=== PATIENT | male | born 1970 | race Caucasian/White ===

== ENCOUNTER 2025-01-14 06:09 | Day surgery (SDC) | payer SELFPAY ==
[2025-01-14] VITALS (8 sets, daily range): BP systolic 93–137; BP diastolic 57–95; PULSE 70–78; RESP 14–16; TEMP 36.3–36.6; O2SAT 96–99; BMI 37.9
--- OUTSIDE RECORDS SUMMARY | 2025-01-14 06:16 | XMS RPT_ITS | CCD ---
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 Name Role Phone Roberto Macdonald Unavailable Unavailable Herrera Enrique Referring Unavailable Herrera Enrique Primary Care Unavailable Porfirio Perez Attending Unavailable Allergies Allergy Classification Reported Allergen(s) Allergy Type Date of Onset Reaction(s) Facility (1 source) gabapentin Drug Allergy 01-10-2025 [facility] Repository (1 source) Latex Drug allergy (disorder) 01-10-2025 [facility] Repository Medications Current Medications Medication Drug Class(es) Dates Sig (Normalized) Sig (Original) aspirin 81 mg chewable tablet (20 sources) Platelet Aggregation Inhibitor, Nonsteroidal Anti-inflammatory Drug aspirin 81 MG Chew Tab take 81 mg by mouth daily.. 0 Active 24 hr buPROPion hydrochloride 300 mg extended release oral tablet (20 sources) Aminoketone Start: 11-30-2017 End: 10-31-2019 take 1 tablet by mouth once daily buPROPion (Wellbutrin XL) 300 MG tablet XL Indications: Mild episode of recurrent major depressive disorder Take 1 tablet by mouth daily. 90 tablet 1 10/31/2019 Active gabapentin 300 mg oral capsule (18 sources) Anti-epileptic Agent Start: 02-21-2020 End: 08-19-2020 take 1 capsule by mouth once daily in the morning gabapentin 100 MG capsule Indications: Neuropathy Take 1 capsule by mouth daily every morning. Take the 300 mg at hs also 90 capsule 1 02/21/2020 08/19/2020 Active Start: 01-30-2020 End: 09-16-2020 take 1 capsule by mouth at bedtime gabapentin 300 MG capsule Indications: Neuropathy Take 1 capsule by mouth at bedtime. 90 capsule 1 03/20/2020 09/16/2020 Active Start: 12-30-2019 End: 03-29-2020 take 1 capsule by mouth three times daily gabapentin 100 MG capsule Indications: Neuropathy Take 1 capsule by mouth 3 times daily. 90 capsule 2 12/30/2019 01/30/2020 Discontinued (Reorder) lisinopril 40 mg oral tablet (20 sources) Angiotensin Converting Enzyme Inhibitor Start: 02-21-2020 take 0.5 tablet by mouth once daily lisinopril 40 MG tablet Indications: Essential hypertension Take 0.5 tablets by mouth daily. 90 tablet 1 02/21/2020 Active Start: 06-01-2018 End: 02-21-2020 take 1 tablet by mouth once daily lisinopril 40 MG Tab tablet Indications: Essential hypertension Take 1 tablet by mouth daily. 90 tablet 1 11/16/2018 Active Start: 11-30-2017 End: 06-01-2018 take 1 tablet by mouth once daily lisinopril 20 MG Tab Indications: Essential hypertension Take 1 tablet by mouth daily. 90 tablet 1 06/01/2018 06/01/2018 Discontinued 24 hr venlafaxine 225 mg extended release oral tablet (20 sources) Serotonin and Norepinephrine Reuptake Inhibitor Start: 11-30-2017 End: 10-31-2019 take 1 tablet by mouth once daily Venlafaxine HCl 225 MG tablet ER Indications: Mild episode of recurrent major depressive disorder Take 1 tablet by mouth daily. 90 tablet 1 10/31/2019 Active Completed/Discontinued Medications Medication Drug Class(es) Dates Sig (Normalized) Sig (Original) clomiPHENE citrate 50 mg oral tablet (4 sources) Estrogen Agonist/Antagonist Start: 8 End: 9 take 0.5 tablet by mouth once daily clomiPHENE 50 MG Tab Indications: Hypotestosteronemia Take 0.5 tablets by mouth daily. 15 tablet 0 12/27/2017 11/16/2018 Discontinued (Patient Preference) clomiPRAMINE hydrochloride 25 mg oral capsule (2 sources) Tricyclic Antidepressant Start: 0 End: 0 take 1 capsule by mouth at bedtime clomiPRAMINE 25 MG capsule Indications: Moderate episode of recurrent major depressive disorder Take 1 capsule by mouth at bedtime. 30 capsule 2 12/30/2019 01/30/2020 Discontinued (Therapy completed) diclofenac sodium 75 mg delayed release oral tablet (8 sources) Nonsteroidal Anti-inflammatory Drug Start: 9 End: 0 take 1 tablet by mouth twice daily diclofenac EC [address] tablet Indications: Thoracic myofascial strain, initial encounter Take 1 tablet by mouth 2 times daily. 60 tablet 1 12/24/2018 10/31/2019 Discontinued (Therapy completed) 60 actuat formoterol fumarate 0.005 mg/actuat / mometasone furoate 0.2 mg/actuat metered dose inhaler (4 sources) Corticosteroid, beta2-Adrenergic Agonist Start: 7 End: 9 take 2 puff(s) by inhalation twice daily mometasone Furo-Formoterol Fum (DULERA) 200-5 MCG/puff Aerosol inhaler Indications: Chronic bronchitis, unspecified chronic bronchitis type Inhale 2 puffs 2 times daily. 1 Inhaler 0 05/22/2017 11/16/2018 Discontinued (Therapy completed) 10 ml lidocaine hydrochloride 10 mg/ml injection (2 sources) Antiarrhythmic, Amide Local Anesthetic Start: 0 End: 0 lidocaine (XYLOCAINE) 10 mg/mL injection 3 mL methocarbamol 500 mg oral tablet (8 sources) Muscle Relaxant Start: 9 End: 0 take 2 tablets by mouth three times daily as needed for muscle spasms methocarbamol 500 MG Tab Indications: Thoracic myofascial strain, initial encounter Take 2 tablets by mouth 3 times daily as needed for Other (muscle spasm). 50 tablet 1 12/24/2018 10/31/2019 Discontinued (Therapy completed) phentermine hydrochloride 37.5 mg oral tablet (4 sources) Sympathomimetic Amine Anorectic Start: 8 End: 9 take 1 tablet by mouth once daily before breakfast phentermine 37.5 MG Tab Indications: Morbid obesity Take 1 tablet by mouth every morning before breakfast. 30 tablet 0 06/01/2018 12/24/2018 Discontinued (Therapy completed) pregabalin 75 mg oral capsule (2 sources) Start: 0 End: 0 take 1 capsule by mouth at bedtime pregabalin 75 MG capsule Indications: Burning sensation of feet Take 1 capsule by mouth at bedtime. 30 capsule 0 10/31/2019 12/30/2019 Discontinued (Formulary change) 24 hr propranolol hydrochloride 60 mg extended release oral capsule (5 sources) beta-Adrenergic Riaz Start: 0 End: 0 take 1 capsule by mouth once daily propranolol (Inderal LA) 60 MG Cap SR 24HR Indications: Anxiety disorder, unspecified type Take 1 capsule by mouth daily. 30 capsule 0 02/21/2020 03/12/2020 Discontinued (Therapy completed) 1 ml triamcinolone acetonide 40 mg/ml prefilled syringe (2 sources) Corticosteroid Start: 0 End: 0 triamcinolone (KENALOG-40) injection 1 mL zolpidem tartrate 10 mg oral tablet (4 sources) gamma-Aminobutyric Acid-ergic Agonist Start: 8 End: 9 take 1 tablet by mouth at bedtime zolpidem 10 MG Tab tablet Indications: Insomnia, unspecified type Take 1 tablet by mouth at bedtime. 30 tablet 0 06/01/2018 12/24/2018 Discontinued (Therapy completed) Problems Active Problems Problem Classification Problem Date Documented Da te Episodic/Chronic Anxiety disorders (2 sources) Anxiety disorder; Translations: [Anxiety disorder, unspecified type] Chronic Chronic obstructive pulmonary disease and bronchiectasis (20 sources) Chronic bronchitis; Translations: [Chronic bronchitis] Onset: 09-26-2016 01-05-2017 Chronic Conditions associated with dizziness or vertigo (11 sources) Postural dizziness; Translations: [Dizziness and giddiness] Onset: 01-31-2020 01-31-2020 Episodic Diabetes mellitus without complication (1 source) Hyperglycemia; Translations: [Elevated fasting glucose] Episodic Disorders of lipid metabolism (20 sources) Hypertriglyceridemi a; Translations: [Hypertriglyceridem ia] Onset: 04-04-2017 04-04-2017 Chronic Essential hypertension (20 sources) Essential hypertension; Translations: [Benign hypertension] Onset: 09-26-2016 Resolved: 02-23-2020 09-26-2016 Chronic Mood disorders (20 sources) Major depressive disorder; Translations: [Recurrent major depressive episodes, mild ] Onset: 01-05-2017 01-05-2017 Chronic Nutritional deficiencies (1 source) Burning feet; Translations: [Burning sensation of feet] Episodic Other nervous system disorders (1 source) Idiopathic peripheral neuropathy; Translations: [Idiopathic peripheral neuropathy] Chronic Other nervous system disorders (12 sources) Neuropathy; Translations: [Neuropathy] Onset: 02-23-2020 02-23-2020 Chronic Other nervous system disorders (2 sources) Spinal cord disease; Translations: [Myelopathy] Chronic Other nutritional; endocrine; and metabolic disorders (20 sources) Morbid obesity; Translations: [Morbid obesity due to excess calories] Onset: 01-05-2017 01-05-2017 Chronic Other upper respiratory disease (20 sources) Seasonal allergic rhinitis; Translations: [Seasonal allergic rhinitis] Onset: 09-26-2016 09-26-2016 Chronic Residual codes; unclassified (4 sources) Insomnia due to medical condition; Translations: [Insomnia due to medical condition] Onset: 01-05-2017 01-05-2017 Chronic Residual codes; unclassified (1 source) Insomnia Episodic Residual codes; unclassified (18 sources) Insomnia co-occurrent and due to medical condition; Translations: [Insomnia due to medical condition] Onset: 01-05-2017 01-05-2017 Spondylosis; intervertebral disc disorders; other back problems (20 sources) Chronic low back pain; Translations: [Low back pain] Onset: 09-26-2016 09-26-2016 Episodic Unclassified (1 source) Patient encounter status; Translations: [Routine lab draw] Unclassified (1 source) Myalgia, other site; Translations: [Myofascial pain syndrome of thoracic spine] Unclassified (1 source) Strain of muscle at thorax level; Translations: [Thoracic myofascial strain, initial encounter] Past or Other Problems Problem Classification Problem Date Documented Date Episodic/Chronic Genitourinary symptoms and ill-defined conditions (20 sources) Polyuria; Translations: [Polyuria] Onset: 7 Resolved: 0 01-05-2017 Episodic Malaise and fatigue (20 sources) Fatigue; Translations: [Chronic fatigue] Onset: 7 01-05-2017 Episodic Other nutritional; endocrine; and metabolic disorders (20 sources) Excessive thirst; Translations: [Polydipsia] Onset: 7 Resolved: 8 11-30-2017 Episodic Other upper respiratory infections (20 sources) Acute upper respiratory infection; Translations: [Acute upper respiratory infection] Onset: 7 Resolved: 7 01-05-2017 Episodic Sprains and strains (18 sources) Low back strain; Translations: [Lumbar strain, initial encounter] Onset: 9 Resolved: 0 12-24-2018 Episodic Unclassified (1 source) Hypotestosteronemia Results Test Name Value Interpretation Reference Range Facility QUANTIFERON TB GOLD PLUS 1 T UBEon 06-28-2020 QUANTIFERNON INCUBATION Incubation performed. [facility] Comment on above: Performed By: #### L MMR #### Testing performed at [address] [address] #### LQFIT, ZQFIT #### Testing performed at [facility] QUANTIFERON-TB GOLD PLUS Negative [facility] Comment on above: Result Comment: Refe rence range: Negative PERFORMED AT [facility] Performed By: #### L MMR #### Testing performed at [address] [address] #### LQFIT, ZQFIT #### Testing performed at [facility] RFLX QUANTIFERON-TB GOLD PLU Son 06-28-2020 QUANTIFERON CRITERIA Comment [facility] Comment on above: Result Comment: (NOT E) The QuantiFERON-TB Gold Plus result is determined by subtracting the Nil value from either TB antigen (Ag) tube. The mitogen tube serves as a control for the test. Performed By: #### L MMR #### Testing performed at [address] [address] #### LQFIT, ZQFIT #### Testing performed at [facility] QUANTIFERON MITOGEN VALUE >10.00 [facility] Comment on above: Result Comment: Unit : IU/mL PERFORMED AT [facility] Performed By: #### L MMR #### Testing performed at [address] [address] #### LQFIT, ZQFIT #### Testing performed at [facility] QUANTIFERON NIL VALUE 0.05 [facility] Comment on above: Result Comment: Unit : IU/mL Performed By: #### L MMR #### Testing performed at [address] [address] #### LQFIT, ZQFIT #### Testing performed at [facility] QUANTIFERON TB1 AG VALUE 0.11 [facility] Comment on above: Result Comment: Unit : IU/mL Performed By: #### L MMR #### Testing performed at [address] [address] #### LQFIT, ZQFIT #### Testing performed at [facility] QUANTIFERON TB2 AG VALUE 0.10 [facility] Comment on above: Result Comment: Unit : IU/mL Performed By: #### L MMR #### [place] [address] #### LQFIT, ZQFIT #### Testing performed at [facility] MEASLES,MUMP,RUBELLAon 06-27 MUMPS ABS, IGG <9.0 [facility] Comment on above: Result Comment: Refe rence range: Immune >10.9 Unit: AU/mL (NOTE) Negative <9.0 Equivocal 9.0 - 10.9 Positive >10.9 A positive result generally indicates past exposure to Mumps virus or previous vaccination. PERFORMED AT [facility] Performed By: #### L MMR #### Testing performed at [address] [address] #### LQFIT, ZQFIT #### Testing performed at [facility] RUBEOLA AB, IGG 49.7 [facility] Comment on above: Result Comment: Refe rence range: Immune >16.4 Unit: AU/mL (NOTE) Negative <13.5 Equivocal 13.5 - 16.4 Positive >16.4 Presence of antibodies to Rubeola is presumptive evidence of immunity except when acute infection is suspected. Performed By: #### L MMR #### Testing performed at [address] [address] #### LQFIT, ZQFIT #### Testing performed at [facility] RUBELLA AB, IGG >33.00 [facility] Comment on above: Result Comment: Refe rence range: Immune >0.99 Unit: index (NOTE) Non-immune <0.90 Equivocal 0.90 - 0.99 Immune >0.99 Performed By: #### L MMR #### Testing performed at [facility] [address] [place] [address] [place] [address] #### LQFIT, ZQFIT #### Testing performed at [facility] HEP B SURFACE [facility] HEP B SURFACE AB Negative Abnormal POSITIVE [facility] Comment on above: Result Comment: Clinical Interpretation of Immune Status Negative: patient is considered to be not immune to infection with HBV Intermediate: unable to determine if anti-HBs is present at levels consistent with immunity Positive: anti-HBs detected, patient is considered to be immune to infection with HBV HEP C [facility] 06-26-2020 HEP C AB Negative Normal NEGATIVE [facility] MRI SPINE CERVICAL WITHOUT C [facility] 04-02-2020 MRI SPINE CERVICAL WITHOUT CONTRAST MRI CERVICAL SPINE WITHOUT CONTRAST, 04/02/2020 12:16 PM EDT INDICATION: Myelopathy. COMPARISON: None. TECHNIQUE: Multiplanar, multisequence surface-coil MR imaging of the cervical spine was performed without contrast. LEVELS IMAGED: Foramen magnum to upper thoracic region. FINDINGS: ALIGNMENT: There is straightening of the normal cervical lordosis. VERTEBRAE: No marrow signal abnormalities to suggest neoplasm. SPINAL CORD: Normal signal and contour. CERVICOCRANIAL JUNCTION: No significant focal abnormality. C2/C3: No significant focal abnormality. C3/C4: There is mild disc desiccation and loss of disc space height. There is a left paracentral protrusion superimposed on a posterior disc bulge. There is mild to moderate bilateral facet arthropathy. Disc material contacts the ventral aspect of the cord at this level with no associated cord signal abnormality. There is mild canal and left greater the right foraminal stenosis. C4/C5: There is mild to moderate disc desiccation and loss of disc space height. There is posterior disc bulging and mild to moderate bilateral facet arthropathy. There is bilateral uncinate process spurring, slightly worse in the right than the left. Minimal canal narrowing. There is mild to moderate right greater than left foraminal narrowing. C5/C6: There is mild to moderate disc desiccation and loss of disc space height. There is a central protrusion which results in mild canal narrowing. There is mild to moderate bilateral facet arthropathy. No significant canal narrowing. C6/C7: Mild disc desiccation. Mild to moderate bilateral facet arthropathy. Tiny left paracentral protrusion. No significant canal or foraminal narrowing. C7/T1: No significant canal or foraminal narrowing. UPPER THORACIC SPINE: No significant focal abnormality. Evaluation of the incidentally imaged paraspinal soft tissues and soft tissue structures in the neck demonstrate no additional clearly acute or diagnostic abnormality otherwise. IMPRESSION: 1. There appears to be mild canal and mild to moderate foraminal narrowing in the cervical spine secondary to discogenic disease and degenerative facet arthropathy, most conspicuous at C3/C4-C4/C5. 2. No acute cervical spine fracture or posttraumatic alignment abnormality is identified. 3. No cord signal abnormality to explain myelopathic symptoms. Normal [facility] IMPRESSION: 1. There appears to be mild canal and mild to moderate foraminal narrowing in the cervical spine secondary to discogenic disease and degenerative facet arthropathy, most conspicuous at C3/C4-C4/C5. 2. No acute cervical spine fracture or posttraumatic alignment abnormality is identified. 3. No cord signal abnormality to explain myelopathic symptoms. [facility] MRI CERVICAL SPINE WITHOUT CONTRAST, 04/02/2020 12:16 PM EDT INDICATION: Myelopathy. COMPARISON: None. TECHNIQUE: Multiplanar, multisequence surface-coil MR imaging of the cervical spine was performed without contrast. LEVELS IMAGED: Foramen magnum to upper thoracic region. FINDINGS: ALIGNMENT: There is straightening of the normal cervical lordosis. VERTEBRAE: No marrow signal abnormalities to suggest neoplasm. SPINAL CORD: Normal signal and contour. CERVICOCRANIAL JUNCTION: No significant focal abnormality. C2/C3: No significant focal abnormality. C3/C4: There is mild disc desiccation and loss of disc space height. There is a left paracentral protrusion superimposed on a posterior disc bulge. There is mild to moderate bilateral facet arthropathy. Disc material contacts the ventral aspect of the cord at this level with no associated cord signal abnormality. There is mild canal and left greater the right foraminal stenosis. C4/C5: There is mild to moderate disc desiccation and loss of disc space height. There is posterior disc bulging and mild to moderate bilateral facet arthropathy. There is bilateral uncinate process spurring, slightly worse in the right than the left. Minimal canal narrowing. There is mild to moderate right greater than left foraminal narrowing. C5/C6: There is mild to moderate disc desiccation and loss of disc space height. There is a central protrusion which results in mild canal narrowing. There is mild to moderate bilateral facet arthropathy. No significant canal narrowing. C6/C7: Mild disc desiccation. Mild to moderate bilateral facet arthropathy. Tiny left paracentral protrusion. No significant canal or foraminal narrowing. C7/T1: No significant canal or foraminal narrowing. UPPER THORACIC SPINE: No significant focal abnormality. Evaluation of the incidentally imaged paraspinal soft tissues and soft tissue structures in the neck demonstrate no additional clearly acute or diagnostic abnormality otherwise. Stripe User, Interfaces - 04/02/2020 3:01 PM EDT MRI CERVICAL SPINE WITHOUT CONTRAST, 04/02/2020 12:16 PM EDT INDICATION: Myelopathy. COMPARISON: None. TECHNIQUE: Multiplanar, multisequence surface-coil MR imaging of the cervical spine was performed without contrast. LEVELS IMAGED: Foramen magnum to upper thoracic region. FINDINGS: ALIGNMENT: There is straightening of the normal cervical lordosis. VERTEBRAE: No marrow signal abnormalities to suggest neoplasm. SPINAL CORD: Normal signal and contour. CERVICOCRANIAL JUNCTION: No significant focal abnormality. C2/C3: No significant focal abnormality. C3/C4: There is mild disc desiccation and loss of disc space height. There is a left paracentral protrusion superimposed on a posterior disc bulge. There is mild to moderate bilateral facet arthropathy. Disc material contacts the ventral aspect of the cord at this level with no associated cord signal abnormality. There is mild canal and left greater the right foraminal stenosis. C4/C5: There is mild to moderate disc desiccation and loss of disc space height. There is posterior disc bulging and mild to moderate bilateral facet arthropathy. There is bilateral uncinate process spurring, slightly worse in the right than the left. Minimal canal narrowing. There is mild to moderate right greater than left foraminal narrowing. C5/C6: There is mild to moderate disc desiccation and loss of disc space height. There is a central protrusion which results in mild canal narrowing. There is mild to moderate bilateral facet arthropathy. No significant canal narrowing. C6/C7: Mild disc desiccation. Mild to moderate bilateral facet arthropathy. Tiny left paracentral protrusion. No significant canal or foraminal narrowing. C7/T1: No significant canal or foraminal narrowing. UPPER THORACIC SPINE: No significant focal abnormality. Evaluation of the incidentally imaged paraspinal soft tissues and soft tissue structures in the neck demonstrate no additional clearly acute or diagnostic abnormality otherwise. IMPRESSION IMPRESSION: 1. There appears to be mild canal and mild to moderate foraminal narrowing in the cervical spine secondary to discogenic disease and degenerative facet arthropathy, most conspicuous at C3/C4-C4/C5. 2. No acute cervical spine fracture or posttraumatic alignment abnormality is identified. 3. No cord signal abnormality to explain myelopathic symptoms. [facility] LARGE JOINT/BURSA INJECTION AND/OR ASPIRATION: L hip jointon 03-06-2020 Elvin Randle, [facility] 03/06/2020 4:20 PM LARGE JOINT/BURSA INJECTION AND/OR ASPIRATION: L hip joint Date/Time: 03/06/2020 11:15 AM Supporting Documentation Indications: pain Procedure Details: Location: hip - L hip joint Local Anesthetic: lidocaine 1% Guidance: ultrasound Needle size: 22 G Medication Verification: I have personally verified and performed the final check of the medication(s) used in this procedure prior to administration. The following items were included during the verification process for medication(s) administered: drug name, strength, volume, expiration, physical integrity and appearance of the medication(s). Medications administered: 3 mL lidocaine 10 mg/mL; 1 mL triamcinolone 40 MG/ML Patient tolerance: patient tolerated the procedure well with no immediate complications Consent: Consent was obtained prior to the procedure after discussion of the risks, benefits and alternatives, and expected outcomes were discussed with the patient. The possibilities of reaction to medication, bleeding, infection, the need for additional procedures, failure to diagnosis a condition, and creating a complication requiring operation were discussed with the patient. The patient concurred with the proposed plan, giving consent. Preparation: Patient was prepped in the usual sterile fashion. The patient was prepped with chlorhexidine. [facility] MRI SPINE LUMBAR WITHOUT CON TRASTon 02-28-2020 MRI SPINE LUMBAR WITHOUT CONTRAST EXAM: MRI SPINE LUMBAR WITHOUT CONTRAST HISTORY: Persistent back pain. COMPARISON: 02/27/2020. TECHNIQUE: Multiplanar, multisequence imaging through the lumbar spine without IV contrast. FINDINGS: Vertebral height, marrow signal, and alignment appears preserved. Disc desiccation identified at L5/S1. No evidence of compression fracture or sacral insufficiency fracture. The conus medullaris is not studied in detail but appears to terminate normally at L1 position. Retroperitoneal structures appear unremarkable. L5/S1: 4 mm right synovial cyst. No evidence of central canal stenosis or significant neural foraminal narrowing. L4/L5: Ligamentum flavum hypertrophy as well as facet arthropathy is noted. There is no evidence of central canal stenosis. Very minimal bilateral neural foraminal narrowing. L3/L4: Ligamentum flavum hypertrophy and facet arthropathy without evidence of central canal stenosis or significant neural foraminal narrowing. No axial images proceed through the more cephalad levels. There is a small disc bulge at L2/L3 without central canal stenosis. Very minimal bilateral neural foraminal narrowing. More superior levels do not demonstrate any gross abnormalities. IMPRESSION: 1. No evidence of central canal stenosis. 2. Mild multilevel neural foraminal narrowing. 3. Small 3 mm synovial cyst emanating from the right L5/S1 facet joint. Normal [facility] IMPRESSION: 1. No evidence of central canal stenosis. 2. Mild multilevel neural foraminal narrowing. 3. Small 3 mm synovial cyst emanating from the right L5/S1 facet joint. [facility] EXAM: MRI SPINE LUMBAR WITHOUT CONTRAST HISTORY: Persistent back pain. COMPARISON: 02/27/2020. TECHNIQUE: Multiplanar, multisequence imaging through the lumbar spine without IV contrast. FINDINGS: Vertebral height, marrow signal, and alignment appears preserved. Disc desiccation identified at L5/S1. No evidence of compression fracture or sacral insufficiency fracture. The conus medullaris is not studied in detail but appears to terminate normally at L1 position. Retroperitoneal structures appear unremarkable. L5/S1: 4 mm right synovial cyst. No evidence of central canal stenosis or significant neural foraminal narrowing. L4/L5: Ligamentum flavum hypertrophy as well as facet arthropathy is noted. There is no evidence of central canal stenosis. Very minimal bilateral neural foraminal narrowing. L3/L4: Ligamentum flavum hypertrophy and facet arthropathy without evidence of central canal stenosis or significant neural foraminal narrowing. No axial images proceed through the more cephalad levels. There is a small disc bulge at L2/L3 without central canal stenosis. Very minimal bilateral neural foraminal narrowing. More superior levels do not demonstrate any gross abnormalities. [facility] User, Interfaces - 02/28/2020 3:20 PM EDT EXAM: MRI SPINE LUMBAR WITHOUT CONTRAST HISTORY: Persistent back pain. COMPARISON: 02/27/2020. TECHNIQUE: Multiplanar, multisequence imaging through the lumbar spine without IV contrast. FINDINGS: Vertebral height, marrow signal, and alignment appears preserved. Disc desiccation identified at L5/S1. No evidence of compression fracture or sacral insufficiency fracture. The conus medullaris is not studied in detail but appears to terminate normally at L1 position. Retroperitoneal structures appear unremarkable. L5/S1: 4 mm right synovial cyst. No evidence of central canal stenosis or significant neural foraminal narrowing. L4/L5: Ligamentum flavum hypertrophy as well as facet arthropathy is noted. There is no evidence of central canal stenosis. Very minimal bilateral neural foraminal narrowing. L3/L4: Ligamentum flavum hypertrophy and facet arthropathy without evidence of central canal stenosis or significant neural foraminal narrowing. No axial images proceed through the more cephalad levels. There is a small disc bulge at L2/L3 without central canal stenosis. Very minimal bilateral neural foraminal narrowing. More superior levels do not demonstrate any gross abnormalities. IMPRESSION IMPRESSION: 1. No evidence of central canal stenosis. 2. Mild multilevel neural foraminal narrowing. 3. Small 3 mm synovial cyst emanating from the right L5/S1 facet joint. [facility] XR SPINE THORACIC 2 VIEWSon 02-27-2020 XR SPINE THORACIC 2 VIEWS EXAM: T-spine HISTORY: Pain. Comparison studies: None TECHNIQUE: 3 views of the thoracic spine were obtained. FINDINGS: There is no evidence of acute fracture or subluxation. No suspicious bone lesions are seen. Moderate degenerative changes are seen. The rest of the visualized structures are unremarkable. IMPRESSION: Unremarkable exam. If clinical concern remains, consider further imaging with MRI. Normal [facility] IMPRESSION: Unremarkable exam. If clinical concern remains, consider further imaging with MRI. [facility] EXAM: T-spine HISTORY: Pain. Comparison studies: None TECHNIQUE: 3 views of the thoracic spine were obtained. FINDINGS: There is no evidence of acute fracture or subluxation. No suspicious bone lesions are seen. Moderate degenerative changes are seen. The rest of the visualized structures are unremarkable. [facility] User, Interfaces - 02/27/2020 8:24 PM EDT EXAM: T-spine HISTORY: Pain. Comparison studies: None TECHNIQUE: 3 views of the thoracic spine were obtained. FINDINGS: There is no evidence of acute fracture or subluxation. No suspicious bone lesions are seen. Moderate degenerative changes are seen. The rest of the visualized structures are unremarkable. IMPRESSION IMPRESSION: Unremarkable exam. If clinical concern remains, consider further imaging with MRI. [facility] ECHOCARDIOGRAMon 02-14-2020 APPROVED REPORT Other Information Study Quality: Good Conclusion Left Ventricle : The left ventricle is normal size. Left ventricular systolic function is normal. The left ventricular ejection fraction is within the normal range. Moderate diastolic dysfunction is present (pseudonormal filling). Left Ventricle The left ventricle is normal size. Left ventricular systolic function is normal. The left ventricular ejection fraction is within the normal range. There is normal left ventricular wall thickness. There is normal LV segmental wall motion. Moderate diastolic dysfunction is present (pseudonormal filling). LVEF is 60-65%. Right Ventricle The right ventricle is normal size. The right ventricular systolic function is normal. Atria The left atrium size is normal. The right atrium size is normal. Aortic Valve The aortic valve is normal in structure. There is no aortic valvular stenosis. No aortic regurgitation is present. Mitral Valve The mitral valve is normal in structure. There is no mitral valve regurgitation noted. Tricuspid Valve The tricuspid valve is normal in structure. There is no tricuspid valve regurgitation noted. Pulmonic Valve The pulmonary valve is normal in structure. There is no pulmonic valvular regurgitation. Great Vessels The aortic root is normal in size. Pericardium There is no pericardial effusion. EXAM: Comprehensive 2D, Doppler, and color-flow Echocardiogram 2D Dimensions IVSd 0.9 cm M: 0.6-1.0 LVEF (Billings's) 60.45 % M: 52 - 72 PWd 1.1 cm M: 0.6 - 1.0 EF AP4-a2DQ 57.50 % LVDd 5.0 cm M: 4.2 - 5.8 EF AP2-a2DQ 60.91 % LVDs 3.32 cm M: 2.5 - 4.0 EF BP-a2DQ 60.45 % Aortic Root 3.69 cm M: 3.1 - 3.7 LVSV 45 mL Aortic Root Index 1.5 cm/m2 LV Volume 112.53 mL M: 62 - 150 Ascending Aorta 3.42 cm M: 2.6 - 3.4 LV Volume Index 45.37 mL/m2 M: 34 - 74 Ascending Aorta Index: 1.4 cm/m2 LA Volume 42.9 mL Left Atrium 3.02 cm M: 3.0 - 4.0 LA Volume Index 17.29 mL/m2 (M/F) 16-34 LVOT 2.41 cm (M/F) 1.5-2.5 RV Major 2.00 cm TAPSE 2.0 <1.7 cm RV Minor 8.95 cm IVC 1.0 cm RVID Base (AP4) 2.85 cm (M/F) 2.5-4.1 Right Atrium 5.5 cm (M/F) 2.9-4.5 LV Diastology E/A Ratio 1.3 Septal E' 0.08 (<.07 m/s) LAT E' 0.12 (<.10 m/s) Aortic Valve LVOT Max 0.99 (0.7-1.1 m/s) LVOT VTI 18.26 cm AV DI 0.99 (>0.25) AoV Peak Aly. 0.86 (0.5-1.3 m/s) AV Vmean 0.67 m/s AO Peak GR. 2.95 mmHg AO Mean GR. 1.90 (<5 mmHg) AO VTI 18.5 (18-25 cm) PHILOMENA (VTI) 4.49 (2.5-4.5 cm2) Mitral Valve MV E Max Aly. 0.8 (0.4-1.3 m/s) MV A Velocity 0.63 (0.4-1.3 m/s) E/A Ratio 1.27 MV PHT 41.41 ms MVA PHT 5.31 cm2 MV Dec [place] 401.48 cm/s2 MV Decel. Time 199.20 (160-240 ms) Pulmonary Valve PV Peak Velocity 1.0 (0.5-1.5 m/s) PV maxPG 4.4 mmHg PV Vmax 1.0 m/s Tricuspid Valve TR P. Velocity 2.15 m/s RAP Estimate 3 mmHg RVSP 21.42 mmHg TR maxPG 18.42 mmHg [employer] User, Interfaces - 02/14/2020 12:52 PM EDT APPROVED REPORT Other Information Study Quality: Good Conclusion Left Ventricle : The left ventricle is normal size. Left ventricular systolic function is normal. The left ventricular ejection fraction is within the normal range. Moderate diastolic dysfunction is present (pseudonormal filling). Left Ventricle The left ventricle is normal size. Left ventricular systolic function is normal. The left ventricular ejection fraction is within the normal range. There is normal left ventricular wall thickness. There is normal LV segmental wall motion. Moderate diastolic dysfunction is present (pseudonormal filling). LVEF is 60-65%. Right Ventricle The right ventricle is normal size. The right ventricular systolic function is normal. Atria The left atrium size is normal. The right atrium size is normal. Aortic Valve The aortic valve is normal in structure. There is no aortic valvular stenosis. No aortic regurgitation is present. Mitral Valve The mitral valve is normal in structure. There is no mitral valve regurgitation noted. Tricuspid Valve The tricuspid valve is normal in structure. There is no tricuspid valve regurgitation noted. Pulmonic Valve The pulmonary valve is normal in structure. There is no pulmonic valvular regurgitation. Great Vessels The aortic root is normal in size. Pericardium There is no pericardial effusion. EXAM: Comprehensive 2D, Doppler, and color-flow Echocardiogram 2D Dimensions IVSd 0.9 cm M: 0.6-1.0LVEF (Billings's)60.45 % M: 52 - 72 PWd 1.1 cm M: 0.6 - 1.0EF AP4-a2DQ57.50 % LVDd 5.0 cm M: 4.2 - 5.8EF AP2-a2DQ60.91 % LVDs 3.32 cm M: 2.5 - 4.0EF BP-a2DQ60.45 % Aortic Root 3.69 cm M: 3.1 - 3.4NCXQ37 mL Aortic Root Index1.5 cm/m2LV Avvogr449.53 mL M: 62 - 150 Ascending Aorta 3.42 cm M: 2.6 - 3.4LV Volume Index45.37 mL/m2 M: 34 - 74 Ascending Aorta Index: 1.4 cm/m2LA Bobzzd40.9 mL Left Atrium 3.02 cm M: 3.0 - 4.0LA Volume Index17.29 mL/m2 (M/F) 16-34 LVOT2.41 cm (M/F) 1.5-2.5RV Major 2.00 cm TAPSE 2.0 <1.7 cmRV Minor8.95 cm IVC1.0 cmRVID Base (AP4)2.85 cm (M/F) 2.5-4.1 Right Atrium 5.5 cm (M/F) 2.9-4.5 LV Diastology E/A Ratio 1.3Septal E'0.08 (<.07 m/s) LAT E'0.12 (<.10 m/s) Aortic Valve LVOT Max0.99 (0.7-1.1 m/s)LVOT VTI18.26 cm AV DI0.99 (>0.25)AoV Peak Aly.0.86 (0.5-1.3 m/s) AV Vmean 0.67 m/Angel Peak GR.2.95 mmHg AO Mean GR.1.90 (<5 mmHg)AO VTI18.5 (18-25 cm) PHILOMENA (VTI)4.49 (2.5-4.5 cm2) Mitral Valve MV E Max Aly.0.8 (0.4-1.3 m/s)MV A Velocity0.63 (0.4-1.3 m/s) E/A Ratio1.27MV PHT41.41 ms MVA PHT5.31 cm2MV Dec [place] 401.48 cm/s2 MV Decel. Ccla628.20 (160-240 ms) Pulmonary Valve PV Peak Velocity1.0 (0.5-1.5 m/s)PV maxPG4.4 mmHg PV Vmax1.0 m/s Tricuspid Valve TR P. Velocity2.15 m/sRAP Estimate3 mmHg RVSP21.42 mmHgTR maxPG 18.42 mmHg [facility] POCT HEMOGLOBIN A1Con 2019 HbA1c (Bld) [Mass fraction] 5.8 % Abnormal 4.7 - 5.6 % [facility] Interpretation and review of laboratory results Abnormal [facility] CBCon 05-13-2019 ABSOLUTE BAS 0.1 10*3/uL Normal 0.0-0.2 [facility] Comment on above: Performed By: #### A CBC, CMPF, LIP2, RTSH #### Testing performed at [address] [address] ABSOLUTE EOS 0.20 10*3/uL Normal 0.0-0.7 [facility] Comment on above: Performed By: #### A CBC, CMPF, LIP2, RTSH #### Testing performed at [address] [address] ABSOLUTE NEUTROPHIL COUNT 5.1 10*3/uL Normal 1.4-6.5 [facility] Comment on above: Performed By: #### A CBC, CMPF, LIP2, RTSH #### Testing performed at [address] [address] Basophils/100 WBC (Bld) 0.9 % Normal 0.0-2.0 [facility] Comment on above: Performed By: #### A CBC, CMPF, LIP2, RTSH #### Testing performed at [address] [address] DTYPE AUTO DIFF Normal [facility] Comment on above: Performed By: #### A CBC, CMPF, LIP2, RTSH #### Testing performed at [address] [address] Eosinophils/100 WBC (Bld) 2.2 % Normal 0.0-11.0 [facility] Comment on above: Performed By: #### A CBC, CMPF, LIP2, RTSH #### Testing performed at [address] [address] Lymphocytes (Bld) [#/Vol] 2.50 10*3/uL Normal 1.2-3.4 [facility] Comment on above: Performed By: #### A CBC, CMPF, LIP2, RTSH #### Testing performed at [address] [address] Lymphocytes/100 WBC (Bld) 29.7 % Normal 20.0-55.0 [facility] Comment on above: Performed By: #### A CBC, CMPF, LIP2, RTSH #### Testing performed at [address] [address] Monocytes (Bld) [#/Vol] 0.7 10*3/uL Normal 0.0-0.7 [facility] Comment on above: Performed By: #### A CBC, CMPF, LIP2, RTSH #### Testing performed at [address] [address] Monocytes/100 WBC (Bld) 7.9 % Normal 0.0-10.0 [facility] Comment on above: Performed By: #### A CBC, CMPF, LIP2, RTSH #### Testing performed at [address] [address] Neutrophils/100 WBC (Bld) 59.3 % Normal 37.0-75.0 [facility] Comment on above: Performed By: #### A CBC, CMPF, LIP2, RTSH #### Testing performed at [address] [address] Erythrocyte distribution width (RBC) [Ratio] 13.5 % Normal 11.5-14.5 [facility] Comment on above: Performed By: #### A CBC, CMPF, LIP2, RTSH #### Testing performed at [address] [address] Hematocrit (Bld) [Volume fraction] 44.5 % Normal 42.0-52.0 [facility] Comment on above: Performed By: #### A CBC, CMPF, LIP2, RTSH #### Testing performed at [address] [address] Hemoglobin (Bld) [Mass/Vol] 15.1 g/dL Normal 14.0-18.0 [facility] Comment on above: Performed By: #### A CBC, CMPF, LIP2, RTSH #### Testing performed at [address] [address] MCH (RBC) [Entitic mass] 30.8 pg Normal 26.0-35.0 [facility] Comment on above: Performed By: #### A CBC, CMPF, LIP2, RTSH #### Testing performed at [address] [address] MCHC (RBC) [Mass/Vol] 33.8 g/dL Normal 27.0-37.0 [facility] Comment on above: Performed By: #### A CBC, CMPF, LIP2, RTSH #### Testing performed at [address] [address] MCV (RBC) [Entitic vol] 91.1 fL Normal 80.0-100.0 [facility] Comment on above: Performed By: #### A CBC, CMPF, LIP2, RTSH #### Testing performed at [address] [address] Platelet mean volume (Bld) [Entitic vol] 7.8 fL Normal 7.4-11.0 [facility] Comment on above: Performed By: #### A CBC, CMPF, LIP2, RTSH #### Testing performed at [address] [address] Platelets (Bld) [#/Vol] 398 10*3/uL Normal 130.0-400.0 [facility] Comment on above: Performed By: #### A CBC, CMPF, LIP2, RTSH #### Testing performed at [address] [address] RBC (Bld) [#/Vol] 4.88 10*6/uL Normal 4.0-6.1 [facility] Comment on above: Performed By: #### A CBC, CMPF, LIP2, RTSH #### Testing performed at [address] [address] WBC (Bld) [#/Vol] 8.5 10*3/uL Normal 3.6-11.0 [facility] Comment on above: Performed By: #### A CBC, CMPF, LIP2, RTSH #### Testing performed at [address] [address] CMP FASTINGon 05-13-2019 A:G RATIO 1.1 RATIO Low 1.3-2.2 [facility] Comment on above: Performed By: #### A CBC, CMPF, LIP2, RTSH #### Testing performed at [address] [address] Albumin [Mass/Vol] 3.9 G/dl Normal 3.5-5.0 [facility] Comment on above: Performed By: #### A CBC, CMPF, LIP2, RTSH #### Testing performed at [address] [address] ALP [Catalytic activity/Vol] 32 U/L Low 38-126 [facility] Comment on above: Performed By: #### A CBC, CMPF, LIP2, RTSH #### [place] [address] ALT [Catalytic activity/Vol] 20 U/L Normal 17-63 [facility] Comment on above: Performed By: #### A CBC, CMPF, LIP2, RTSH #### [place] [address] AST [Catalytic activity/Vol] 18 U/L Normal 15-41 [facility] Comment on above: Performed By: #### A CBC, CMPF, LIP2, RTSH #### [place] [address] Bilirubin [Mass/Vol] 0.3 mg/dL Normal 0.2-1.2 [facility] Comment on above: Performed By: #### A CBC, CMPF, LIP2, RTSH #### [place] [address] Creatinine [Mass/Vol] 0.90 mg/dL Normal 0.66-1.25 [facility] Comment on above: Performed By: #### A CBC, CMPF, LIP2, RTSH #### [place] [address] EST. GFR, >60 Normal [facility] Comment on above: Performed By: #### A CBC, CMPF, LIP2, RTSH #### [place] [address] EST. GFR,Non >60 Normal [facility] Comment on above: Performed By: #### A CBC, CMPF, LIP2, RTSH #### [place] [address] GFR/1.73 sq M predicted among non-blacks MDRD (S/P/Bld) [Vol rate/Area] Average GFR for 40-49 years old = 99. Normal [facility] Comment on above: Result Comment: Meteorological Engineer julisa Kidney disease, GFR = <60. Kidney failure, GFR = <15. The GFR estimate is not adjusted for extreme body surface area or acute process, nor has it been validated for women or ethnic groups other than and . Performed By: #### A CBC, CMPF, LIP2, RTSH #### Testing performed at [address] [address] Protein [Mass/Vol] 7.6 g/dL Normal 6.3-8.2 [facility] Comment on above: Performed By: #### A CBC, CMPF, LIP2, RTSH #### Testing performed at [address] [address] Urea nitrogen [Mass/Vol] 12 mg/dL Normal 7-20 [facility] Comment on above: Performed By: #### A CBC, CMPF, LIP2, RTSH #### Testing performed at [address] [address] Calcium [Mass/Vol] 9.1 mg/dL Normal 8.4-10.2 [facility] Comment on above: Performed By: #### A CBC, CMPF, LIP2, RTSH #### Testing performed at [address] [address] Chloride [Moles/Vol] 102 mmol/L Normal 98-107 [facility] Comment on above: Performed By: #### A CBC, CMPF, LIP2, RTSH #### Testing performed at [address] [address] CO2 [Moles/Vol] 27 mmol/L Normal 22-30 [facility] Comment on above: Performed By: #### A CBC, CMPF, LIP2, RTSH #### Testing performed at [address] [address] Glucose [Mass/Vol] 115 mg/dL High 70-100 [facility] Comment on above: Result Comment: NORMAL <100 mg/dL PREDIABETES 101-126 mg/dL DIABETES 126 mg/dL or higher Performed By: #### A CBC, CMPF, LIP2, RTSH #### Testing performed at [address] [address] Potassium [Moles/Vol] 4.0 mmol/L Normal 3.5-5.1 [facility] Comment on above: Performed By: #### A CBC, CMPF, LIP2, RTSH #### Testing performed at [address] [address] Sodium [Moles/Vol] 139 mmol/L Normal 136-145 [facility] Comment on above: Performed By: #### A CBC, CMPF, LIP2, RTSH #### Testing performed at [address] [address] LIPID PROFILEon 05-13-2019 Cholesterol [Mass/Vol] 189 mg/dL Normal 100-199 [facility] Comment on above: Performed By: #### A CBC, CMPF, LIP2, RTSH #### Testing performed at [address] [address] Cholesterol in HDL [Mass/Vol] 29 mg/dL Low 40-60 [facility] Comment on above: Performed By: #### A CBC, CMPF, LIP2, RTSH #### Testing performed at [address] [address] Cholesterol in LDL [Mass/Vol] 121 mg/dL High 0-100 [facility] Comment on above: Performed By: #### A CBC, CMPF, LIP2, RTSH #### Testing performed at [address] [address] Cholesterol in VLDL [Mass/Vol] 39 mg/dL High 5.0-25.0 [facility] Comment on above: Performed By: #### A CBC, CMPF, LIP2, RTSH #### Testing performed at [address] [address] Cholesterol.total/Chol esterol in HDL [Mass ratio] 6.52 {ratio} Normal [facility] Comment on above: Result Comment: RISK TOTAL/HDL RATIO MEN WOMEN 1/2 AVERAGE 3.43 3.27 AVERAGE 4.97 4.44 2X AVERAGE 9.55 7.05 3X AVERAGE 23.99 11.04 Performed By: #### A CBC, CMPF, LIP2, RTSH #### Testing performed at [address] [address] Triglyceride [Mass/Vol] 194 mg/dL High <150 [facility] Comment on above: Performed By: #### A CBC, CMPF, LIP2, RTSH #### Testing performed at [facility] [address] [facility] [address] TSH,REFLEX FREE T4on 019 TSH,REFLEX FREE T4 2.117 uIU/ML Normal 0.45-5.33 [facility] Comment on above: Performed By: #### A CBC, CMPF, LIP2, RTSH #### Testing performed at [facility] [address] [facility] [address] Otheron 03-01-2019 IMPRESSION: Mild endplate spurring throughout the majority of the lumbar spine with mild disc space narrowing suspected at L5-S1. Multilevel facet arthrosis, most pronounced at L4-L5 and L5-S1. [facility] EXAM: XR SPINE LUMBOSACRAL 5 VIEWS HISTORY: Low back pain. COMPARISON: Lumbar radiograph dated 06/02/2010. TECHNIQUE: 5 views of the lumbar spine. FINDINGS: There is a slight levocurvature of the lumbar spine centered at C3-C4. There 5 nonrib-bearing lumbar-type vertebral segments. The vertebral body heights are well-preserved. Mild anterior endplate spurring is noted along the superior endplates of the L1-L4 vertebral bodies. Additional anterior endplate spurring is noted in the partially imaged lower thoracic spine. Mild disc space narrowing is suspected at L5-S1. There is multilevel facet arthrosis, most pronounced at L4-L5 and L5-S1 bilaterally. [facility] User, Interfaces - 03/01/2019 1:03 PM EDT EXAM: XR SPINE LUMBOSACRAL 5 VIEWS HISTORY: Low back pain. COMPARISON: Lumbar radiograph dated 06/02/2010. TECHNIQUE: 5 views of the lumbar spine. FINDINGS: There is a slight levocurvature of the lumbar spine centered at C3-C4. There 5 nonrib-bearing lumbar-type vertebral segments. The vertebral body heights are well-preserved. Mild anterior endplate spurring is noted along the superior endplates of the L1-L4 vertebral bodies. Additional anterior endplate spurring is noted in the partially imaged lower thoracic spine. Mild disc space narrowing is suspected at L5-S1. There is multilevel facet arthrosis, most pronounced at L4-L5 and L5-S1 bilaterally. IMPRESSION IMPRESSION: Mild endplate spurring throughout the majority of the lumbar spine with mild disc space narrowing suspected at L5-S1. Multilevel facet arthrosis, most pronounced at L4-L5 and L5-S1. [facility] Vital Signs Date Time Vital Sign Value Performing Clinician Nora zayas 03-25-2020 14:51-0400 BMI (Body Mass Index) 40.64 kg/m2 [facility] 03-25-2020 14:51-0400 Body Temperature 98.29 [degF] [facility] 03-25-2020 14:51-0400 Body weight 132.18 kg [facility] 03-25-2020 14:51-0400 BP Diastolic 82 mm[Hg] [facility] 03-25-2020 14:51-0400 BP Systolic 128 mm[Hg] [facility] 03-25-2020 14:51-0400 Height 180.3 cm [facility] 03-25-2020 14:51-0400 Pulse (Heart Rate) 69 /min [facility] 03-25-2020 14:51-0400 Pulse Oximetry 98 % [facility] 03-12-2020 13:04-0400 BMI (Body Mass Index) 40.53 kg/m2 [facility] 03-12-2020 13:04-0400 Body Temperature 96.69 [degF] [facility] 03-12-2020 13:04-0400 Body weight 131.81 kg [facility] 03-12-2020 13:04-0400 BP Diastolic 90 mm[Hg] [facility] 03-12-2020 13:04-0400 BP Systolic 130 mm[Hg] [facility] 03-12-2020 13:04-0400 Height 180.3 cm [facility] 03-12-2020 13:04-0400 Pulse (Heart Rate) 64 /min [facility] 03-12-2020 13:04-0400 Pulse Oximetry 96 % [facility] 03-06-2020 11:30-0400 BMI (Body Mass Index) 40.87 kg/m2 Enrico Hull [facility] 03-06-2020 11:30-0400 Body Temperature 98.01 [degF] [facility] 11:30-0400 Body weight 132.9 [facility] 03-06-2020 11:30-0400 Height 180.3 cm [facility] 02-21-2020 14:31-0400 BMI (Body Mass Index) 40.89 kg/m2 [facility] 02-21-2020 14:31-0400 Body Temperature 96.21 [degF] [facility] 02-21-2020 14:31-0400 Body weight 133 kg [facility] 02-21-2020 14:31-0400 BP Diastolic 80 mm[Hg] [facility] 02-21-2020 14:31-0400 BP Systolic 140 mm[Hg] [facility] 02-21-2020 14:31-0400 Height 180.3 cm [facility] 02-21-2020 14:31-0400 Pulse (Heart Rate) 80 /min [facility] 02-21-2020 14:31-0400 Pulse Oximetry 97 % [facility] 01-30-2020 11:27-0400 BMI (Body Mass Index) 40.47 kg/m2 [facility] 01-30-2020 11:27-0400 Body Temperature 96.01 [degF] [facility] 01-30-2020 11:27-0400 Body weight 131.63 kg [facility] 01-30-2020 11:27-0400 BP Diastolic 80 mm[Hg] [facility] 01-30-2020 11:27-0400 BP Systolic 130 mm[Hg] [facility] 01-30-2020 11:27-0400 Height 180.3 cm [facility] 01-30-2020 11:27-0400 Pulse (Heart Rate) 78 /min [facility] 01-30-2020 11:27-0400 Pulse Oximetry 95 % [facility] 12-30-2019 19:28-0400 BMI (Body Mass Index) 41.37 kg/m2 [facility] 12-30-2019 19:28-0400 Body Temperature 97.9 [degF] [facility] 12-30-2019 19:28-0400 Body weight 134.54 kg [facility] 12-30-2019 19:28-0400 BP Diastolic 88 mm[Hg] [facility] 12-30-2019 19:28-0400 BP Systolic 140 mm[Hg] [facility] 12-30-2019 19:28-0400 Height 180.3 cm [facility] 12-30-2019 19:28-0400 Pulse (Heart Rate) 74 /min [facility] 12-30-2019 19:28-0400 Pulse Oximetry 97 % [facility] 10-31-2019 08:49-0400 BMI (Body Mass Index) 43.04 kg/m2 [facility] [employer] [facility] 10-31-2019 08:49-0400 Body Temperature 96.1 [degF] [facility] 10-31-2019 08:49-0400 Body weight 139.98 kg [facility] 10-31-2019 08:49-0400 BP Diastolic 80 mm[Hg] [facility] 10-31-2019 08:49-0400 BP Systolic 130 mm[Hg] [facility] 10-31-2019 08:49-0400 Height 180.3 cm [facility] 10-31-2019 08:49-0400 Pulse (Heart Rate) 64 /min [facility] 10-31-2019 08:49-0400 Pulse Oximetry 98 % [facility] 05-14-2019 08:40-0500 BMI (Body Mass Index) 44.97 kg/m2 [facility] [employer] [facility] 05-14-2019 08:40-0500 Body Temperature 97.9 [degF] [facility] 05-14-2019 08:40-0500 Body weight 146.24 kg [facility] 05-14-2019 08:40-0500 BP Diastolic 72 mm[Hg] [facility] 05-14-2019 08:40-0500 BP Systolic 122 mm[Hg] [facility] 05-14-2019 08:40-0500 Height 180.3 cm [facility] 05-14-2019 08:40-0500 Pulse (Heart Rate) 71 /min [facility] [employer] 05-14-2019 08:40-0500 Pulse Oximetry 96 % [facility] [employer] 12-24-2018 18:51-0400 BMI (Body Mass Index) 44.6 kg/m2 [facility] 12-24-2018 18:51-0400 Body Temperature 97.59 [degF] [facility] 12-24-2018 18:51-0400 Body weight 145.06 kg [facility] 12-24-2018 18:51-0400 BP Diastolic 84 mm[Hg] [facility] 12-24-2018 18:51-0400 BP Systolic 128 mm[Hg] [facility] 12-24-2018 18:51-0400 Height 180.3 cm [facility] 12-24-2018 18:51-0400 Pulse (Heart Rate) 82 /min [facility] 12-24-2018 18:51-0400 Pulse Oximetry 96 % [facility] 12-24-2018 18:51-0400 Respiratory Rate 16 /min [facility] 11-16-2018 11:06-0400 BMI (Body Mass Index) 44.77 kg/m2 [facility] 11-16-2018 11:06-0400 Body Temperature 96.3 [degF] Mariangel Moody [employer] 11-16-2018 11:06-0400 BP Diastolic 88 mm[Hg] [facility] [employer] 11-16-2018 11:06-0400 BP Systolic 132 mm[Hg] Mariangel Moody [employer] 11-16-2018 11:06-0400 Height 180.3 cm [facility] [employer] 11-16-2018 11:06-0400 Pulse (Heart Rate) 80 /min [facility] [employer] 11-16-2018 11:06-0400 Pulse Oximetry 98 % Mariangel Moody [employer] 11-16-2018 11:06-0400 Respiratory Rate 18 /min Mariangel Moody [employer] 11-16-2018 11:06-0400 Weight 145.6 kg Mariangel Moody [employer] 06-01-2018 10:02-0500 BMI (Body Mass Index) 45.5 kg/m2 [facility] Work Phone: 06-01-2018 10:02-0500 Body Temperature 97.9 [degF] [facility] Work Phone: 06-01-2018 10:02-0500 BP Diastolic 92 mm[Hg] [facility] Work Phone: 06-01-2018 10:02-0500 BP Systolic 152 mm[Hg] [facility] Work Phone: 06-01-2018 10:02-0500 Height 180.3 cm [facility] Work Phone: 06-01-2018 10:02-0500 Pulse (Heart Rate) 76 /min [facility] Work Phone: 06-01-2018 10:02-0500 Pulse Oximetry 97 % [facility] Work Phone: 06-01-2018 10:02-0500 Weight 147.96 kg [facility] Work Phone: Encounters Encounter Date Encounter Type Care Provider Facility Start: 01-14-2025 ambulatory [facility] Facility:[facility] Start: 04-02-2020 End: 04-02-2020 Subsequent hospital visit by physician Porfirio Wilkinson Work Phone: [facility] MRI Comment on above: Arrived Start: 03-25-2020 End: 03-25-2020 Office outpatient new 45 minutes Porfirio Wilkinson Work Phone: [facility] Neurology Comment on above: Neuropathy (Primary Dx); Myelopathy Start: 03-12-2020 End: 03-12-2020 Office outpatient visit 15 minutes Roberto Macdonald Work Phone: [facility] Comment on above: Anxiety disorder, un specified type; Neuropathy Start: 03-06-2020 End: 03-06-2020 Office consultation new/estab patient 60 min Enrico Hull Work Phone: [facility] Comment on above: Chronic left-sided l ow back pain, unspecified whether sciatica present (Primary Dx) Start: 02-28-2020 End: 02-28-2020 Subsequent hospital visit by physician Roberto Macdonald Work Phone: [facility] MRI Comment on above: Arrived Start: 02-27-2020 End: 02-27-2020 Subsequent hospital visit by physician William Barrett Work Phone: [facility] Radiology Start: 02-21-2020 End: 02-21-2020 Office outpatient visit 25 minutes Roberto Nithin [employer] Work Phone: [facility] Medicine Comment on above: Essential hypertensi on (Primary Dx); Lumbar radiculopathy; Postural dizziness with presyncope; Anxiety disorder, unspecified type; Neuropathy Start: 02-14-2020 End: 02-14-2020 Subsequent hospital visit by physician Isaiah Youssef Work Phone: [facility] Comment on above: Arrived Start: 01-30-2020 End: 01-30-2020 Office outpatient visit 15 minutes Roberto Weller [employer] Work Phone: [facility] Medicine Comment on above: Neuropathy Start: 12-30-2019 End: 12-30-2019 Office outpatient visit 25 minutes Roberto Nithin [employer] Phone: [facility] Comment on above: Moderate episode of recurrent major depressive disorder (Primary Dx); Chronic left-sided low back pain with left-sided sciatica; Essential hypertension; Morbid obesity due to excess calories; Neuropathy; Postural dizziness with presyncope Start: 10-31-2019 End: 10-31-2019 Office outpatient visit 25 minutes Roberto Nithin [employer] Phone: [facility] Comment on above: Essential hypertensi on (Primary Dx); Mild episode of recurrent major depressive disorder; Elevated fasting glucose; Burning sensation of feet; Idiopathic peripheral neuropathy; Chronic midline low back pain with left-sided sciatica Start: 05-14-2019 End: 05-14-2019 Office outpatient visit 15 minutes Roberto Nithin [employer] Phone: [facility] Comment on above: Mild episode of recu rrent major depressive disorder; Essential hypertension Start: 03-01-2019 End: 03-01-2019 Subsequent hospital visit by physician Isaiah James Work Phone: [facility] Comment on above: Arrived Low back pain, unspe cified back pain laterality, unspecified chronicity, with sciatica presence unspecified Start: 02-15-2019 End: 02-15-2019 Telephone encounter Roberto Macdonald Work Phone: [facility] Comment on above: Chronic Pain (Referr al request) Start: 12-24-2018 End: 12-24-2018 Office outpatient visit 15 minutes Roberto Nithin Macdonald Work Phone: [facility] Comment on above: Thoracic myofascial strain, initial encounter (Primary Dx); Benign hypertension; Morbid obesity due to excess calories Start: 12-24-2018 End: 12-24-2018 Letter encounter Roberto Macdonald Work Phone: [facility] Start: 11-16-2018 End: 11-16-2018 Office outpatient visit 15 minutes Mariangel Moody Work Phone: [facility] Comment on above: Mild episode of recu rrent major depressive disorder (Primary Dx); Essential hypertension; Routine lab draw Start: 11-12-2018 End: 11-12-2018 Refill Roberto Macdonald Work Phone: [facility] Start: 11-08-2018 End: 11-08-2018 Refill Roberto Macdonald Work Phone: [facility] Start: 06-01-2018 End: 06-01-2018 Office outpatient visit 15 minutes Roberto Nithin Macdonald Work Phone: [facility] Comment on above: Essential hypertensi on (Primary Dx); Mild episode of recurrent major depressive disorder; Hypotestosteronemia; Morbid obesity; Insomnia, unspecified type Procedures Date Procedure Procedure Detail Performing Clinician Start: 04-02-2020 MRI of cervical spine Olu Wilkinson Work Phone: Start: 03-06-2020 Arthrocentesis aspir &/inj major jt/bursa w/us Enrico Hull Work Phone: Start: 02-28-2020 MRI of lumbar spine Zunilda Macdonald Work Phone: Start: 02-27-2020 Radiography of thoracic spine William Barrett Work Phone: Start: 02-14-2020 Transthoracic echocardiography Isaiah Youssef Work Phone: Start: 10-31-2019 Hemoglobin glycosylated a1c Roberto Macdonald Work Phone: Start: 05-13-2019 Lipid 1996 panel - S roz or Plasma Roberto Macdonald Start: 03-01-2019 Diagnostic radiograp hy of lumbar spine Isaiah James Work Phone: Start: 03-01-2019 ORDERS (OUTSIDE) Histor ical Provider Start: 11-30-2017 Lipid 1996 panel - S roz or Plasma Roberto Macdonald Plan of Treatment Date Care Activity Detail Author Start: 05-13-2024 Fasting lipid profile LIPID SCREENIN G [facility] [employer] Start: 11-30-2022 Fasting lipid profile LIPID SCREENIN G [facility] Work Phone: Start: 08-03-2020 End: 08-03-2020 Office Visit 08/03/2020 Office Visit Cardiovascular Medicine Isaiah Youssef MD [address] [place] [address] [phone] [facility] Cardiology Start: 05-20-2020 End: 05-20-2020 Office Visit 05/20/2020 Office Visit Neurology Porfirio Wilkinson MD [address] [place] [address] [phone] [facility] Neurology Start: 04-28-2020 End: 04-28-2020 Office Visit 04/28/2020 Office Visit Family Medicine Roberto Macdonald MD [address] [place] [phone] [facility] Start: 03-30-2020 End: 03-30-2020 Office Visit 03/30/2020 Office Visit Physical Medicine & Rehabilitation William Barrett DO [address] [place] [address] [phone] [facility] Start: 03-26-2020 End: 03-25-2021 JAMEL MULTIPLEX SCRN WITH REFLEX JAMEL MULTIPLEX SCRN WITH REFLEX Lab Routine Neuropathy Expected: 03/26/2020, Expires: 03/25/2021 [facility] Comment on above: Expected: 03/26/2020 , Expires: 03/25/2021 Start: 03-25-2020 End: 03-25-2021 B12/folate level B12 & FOLATE Lab Routine Neuropathy Expected: 03/25/2020, Expires: 03/25/2021 [facility] Comment on above: Expected: 03/25/2020 , Expires: 03/25/2021 Start: 03-25-2020 End: 03-25-2021 VANESSA AND PE, SERUM VANESSA AND PE, SERUM Lab Routine Neuropathy Expected: 03/25/2020, Expires: 03/25/2021 [facility] Comment on above: Expected: 03/25/2020 , Expires: 03/25/2021 Start: 03-25-2020 End: 03-25-2021 MRI of cervical spine MRI SPINE CERVICAL WITHOUT CONTRAST Imaging Routine Myelopathy Expected: 03/25/2020, Expires: 03/25/2021 [facility] Comment on above: Expected: 03/25/2020 , Expires: 03/25/2021 Start: 03-25-2020 End: 03-25-2021 SEDIMENTATION RATE, AUTOMATED SEDIMENTATION RATE, AUTOMATED Lab Routine Neuropathy Expected: 03/25/2020, Expires: 03/25/2021 [facility] Comment on above: Expected: 03/25/2020 , Expires: 03/25/2021 Start: 03-12-2020 End: 03-12-2020 Office Visit 03/12/2020 Office Visit Family Medicine Roberto Macdonald MD [address] [place] [address] [facility] Start: 03-06-2020 End: 03-06-2020 Office Visit 03/06/2020 Office Visit Orthopaedics Enrico Hull DO [address] [facility] [place] [address] [phone] [facility] Start: 02-28-2020 End: 02-28-2020 Appointment 02/28/2020 Appointment Magnetic Resonance Imaging Roberto Macdonald MD [address] [place] [address] [phone] [facility] MRI Start: 02-27-2020 End: 02-27-2020 Office Visit 02/27/2020 Office Visit Physical Medicine & Rehabilitation William Barrett, DO [address] [place] [address] [phone] [facility] Start: 02-21-2020 End: 02-21-2020 Office Visit 02/21/2020 Office Visit Family Medicine Roberto Macdonald MD [address] [place] [address] [phone] [facility] Start: 02-21-2020 End: 02-20-2021 MRI of lumbar spine MRI SPINE LUMBAR WITHOUT CONTRAST Imaging Routine Lumbar radiculopathy Expected: 02/21/2020, Expires: 02/20/2021 [facility] Comment on above: Expected: 02/21/2020 , Expires: 02/20/2021 Start: 02-18-2020 End: 02-18-2020 Office Visit 02/18/2020 Office Visit Physical Medicine & Rehabilitation Duc Alaniz MD [address] [place] [address] [phone] [facility] Start: 02-11-2020 Influenza vaccination [facility] Start: 02-06-2020 End: 02-06-2020 Rehab Services Visit 02/06/2020 Rehab Services Visit Physical Therapy William Barrett DO [address] [place] [address] [phone] Paresh Sy PTA [facility] Physical Therapy [employer] [facility] [employer] [facility] [employer] [facility] Start: 02-04-2020 End: 02-04-2020 Rehab Services Visit 02/04/2020 Rehab Services Visit Physical Therapy William Barrett DO [address] [place], [place] [phone] Paresh Sy PTA [facility] Physical Therapy [facility] Start: 01-30-2020 End: 01-30-2020 Office Visit 01/30/2020 Office Visit Family Medicine Roberto Macdonald MD [address] [place] [address], [place] [phone] [facility] Start: 06-20-2019 End: 06-20-2019 Office Visit 06/20/2019 Office Visit Family Medicine Roberto Macdonald MD [address] [place] [phone] [facility] Start: 05-14-2019 End: 05-14-2019 Office Visit 05/14/2019 Office Visit [facility] Medicine Roberto Macdonald MD [address] [place] [address], [place] [address] [phone] [facility] Start: 02-10-2019 Influenza vaccination [facility] Start: 11-16-2018 End: 11-17-2019 CBC, EDIF, PLATELET CBC, EDIF, PLATELET Lab Routine Routine lab draw Expected: 11/16/2018, Expires: 11/17/2019 [employer] Comment on above: Expected: 11/16/2018 , Expires: 11/17/2019 Start: 11-16-2018 End: 11-17-2019 Comprehensive metabolic 2000 panel COMPREHENSIVE METABOLIC PANEL Lab Routine Routine lab draw Expected: 11/16/2018, Expires: 11/17/2019 [employer] [facility] Comment on above: Expected: 11/16/2018 , Expires: 11/17/2019 Start: 11-16-2018 End: 11-17-2019 LIPID PANEL W CALCULATED LDL LIPID PANEL W CALCULATED LDL Lab Routine Routine lab draw Expected: 11/16/2018, Expires: 11/17/2019 [facility] [facility] Comment on above: Expected: 11/16/2018 , Expires: 11/17/2019 Start: 11-16-2018 End: 11-17-2019 TSH W/FT4 REFLEX TSH W/FT4 REFLEX Lab Routine Routine lab draw Expected: 11/16/2018, Expires: 11/17/2019 [facility] [facility] Comment on above: Expected: 11/16/2018 , Expires: 11/17/2019 Start: 07-05-2018 End: 07-05-2018 Ambulatory 07/05/2018 Office Visit Family Medicine Roberto Macdonald MD [address] [place] [address] [phone] [facility] Start: 02-10-2018 Influenza vaccination INFLUENZA VACC INE (#1) [facility] Work Phone: Start: 08-09-1990 Third diphtheria, tetanus and acellular pertussis (DTaP) vaccination TDAP (ADULT) [facility] Work Phone: Start: 08-09-1989 Tetanus vaccination TETANUS [place] Work Phone: Start: 08-09-1984 HIV screening HIV SCREENING DISCUSSION [facility] Work Phone: Payers Date Payer Category Payer Self-pay 2024 Unknown [id number] 2017 Unknown CECIL CECIL O PPO POS xxxxxxxxxxxxxxx 2017-Present xxxxxxxxxxxxxxx [id number] 2017 Unknown CECIL TAPIAYMRANDA O PPO POS [id number] 2017-Present [id number] Unknown [id number] Social History Date Type Detail Facility Start: 12-27-2017 End: 02-28-2020 Tobacco smoking status NHIS Former smoker [facility] Work Phone: Sex Assigned At Not on file [facility] Work Phone: End: 04-12-2016 History of tobacco use Current smoker [facility] End: 04-12-2016 History of tobacco use Cigarette Smoker [facility] Start: 09-26-2016 Alcohol Comment Rarely CHARITO MONTAÑO Start: 12-24-2018 Alcohol intake Yes CHARITO SALAS Start: 05-14-2019 End: 02-28-2020 Alcohol intake Current drinker of alcohol (finding) [facility] Start: 10-31-2019 End: 02-28-2020 Tobacco use and exposure Never used [facility] Exposure to SARS-CoV -2 (event) Not sure [facility] [facility] Goals Date Patient Goal Desired Activity /State Comment on above: Pt will be independe nt in a home exercise program to improve/maintain hip and lumbar ROM, LE flexibility, and muscular strength of the lower body in 6 weeks. Pt will be have complete centralization of radicular symptoms from the LE(s) and be able to maintain postures and activities without symptom peripheralization in 6 weeks. Pt will have a decrease subjective symptoms in reported area of pain to a rating of 0/10 or to an acceptable tolerable level allowing the patient to sleep, sit for long periods, stand, walk, and resume back with previous level of activity in 6 weeks Pt will be able to demonstrate lumbar AROM in all planes of motion without pain and to normative values related to age, gender, and body type to allow the patient to perform normal ADL and recreational activities in 6 weeks. Pt will demonstrate negative neural tension of the LE (s) with SLR, PKF, and slump testing in 6 weeks. Pt will demonstrate equal and normal myotome strength of the lower extremities from L1-S2 in order to use both LE normally without complaints of weakness. Pt have normal protestant of hip AROM/PROM and strength of the hip and LE musculature to improve patient s ability to negotiate steps, rise from chair, and walk without symptoms in 6 weeks. History of Present Illness * Roberto Macdonald MD - 06/01/2018 9:50 AM EST Formatting of this note may be different from the original. SUBJECTIVE: Fanta Whitley is a 47 y.o. male who presents with complaints as stated below. Chief Complaint Patient presents with Depression Hypertension Obesity he is not active at work Other Hypertension: He is taking his medication as ordered. He Is not checking BP at home. He works 7 days a week. He is having headaches, has been getting dizzy, denies getting chest pains, denies palpitations. Depression: He is taking his medications as ordered. He is not having insomnia. He admits to havingchanges in interest, is having depressed mood, denies crying spells, is not having fatigue, is not having problems concentrating, has changes in appetite, denies a visible slowing of physical and emotional reactions, has emotional distress and restlessness, has suicidal ideation but does not act upon it. He takes care of his who is not well. Patient Active Problem List Diagnosis Benign hypertension Chronic bronchitis Chronic low back pain Seasonal allergic rhinitis Major depressive disorder Insomnia due to medical condition Chronic fatigue Polyuria Morbid obesity due to excess calories Hypertriglyceridemia Outpatient Medications Prior to Visit Medication Sig Dispense Refill aspirin 81 MG Chew Tab take 81 mg by mouth daily.. clomiPHENE 50 MG Tab Take 0.5 tablets by mouth daily. 15 tablet 0 buPROPion (WELLBUTRIN XL) 300 MG tablet XL Take 1 tablet by mouth daily. 90 tablet 1 lisinopril 20 MG Tab Take 1 tablet by mouth daily. 90 tablet 1 Venlafaxine HCl 225 MG tablet ER Take 1 tablet by mouth daily. 90 tablet 1 mometasone Furo-Formoterol Fum (DULERA) 200-5 MCG/puff Aerosol inhaler Inhale 2 puffs 2 times daily. (Patient not taking: Reported on 06/01/2018 ) 1 Inhaler 0 No facility-administered medications prior to visit. Social History Substance Use Topics Smoking status: Former Smoker Smokeless tobacco: Never Used Alcohol use Yes Comment: Rarely Past Surgical History: Procedure Laterality Date VASECTOMY 1995 HEART SURGERY At age 17 - irregular heartbeat OBJECTIVE: Blood pressure (!) 152/92, pulse 76, temperature 97.9 F (36.6 C), temperature source Temporal, height 1.803 m (5' 11), weight (!) 148 kg (326 lb 3.2 oz), SpO2 97 %. Body mass index is 45.5 kg/m . General appearance: alert, well appearing, in no acute distress, oriented to person, place, and time and morbidly obese, Thyroid exam reveals thyroid is normal in size without nodules or tenderness. CVS exam: normal rate, regular rhythm, normal S1, S2, no murmurs, rubs, clicks or gallops. Chest: clear to auscultation, no wheezes, rales or rhonchi, symmetric air entry. He is appropriately groomed with mildly flat affect. ASSESSMENT: ICD-10-CM 1. Essential hypertension I10 lisinopril 40 MG Tab tablet DISCONTINUED: lisinopril 20 MG Tab 2. Mild episode of recurrent major depressive disorder F33.0 buPROPion (WELLBUTRIN XL) 300 MG tablet XL Venlafaxine HCl 225 MG tablet ER 3. Hypotestosteronemia E34.9 4. Morbid obesity E66.01 phentermine 37.5 MG Tab 5. Insomnia, unspecified type G47.00 zolpidem 10 MG Tab tablet PLAN: His HT is uncontrolled, I advised him to increase dose of his medication. See orders for details. His depression is unchanged, I advised him to continue current therapy at current doses Weight loss has been encouraged by following dietary restrictions (a balanced diet of mainly whole food plant-based diet with minimal animal protein, refined CHO's, and fat), and aerobic exercise. Wediscussed glycemic index of foods and I did not print off a list of low and high GI foods. I explained how foods with high GI cause a need for a raise in insulin which changes the Glucose to TG's (abdominal fat). By eating a diet with only low GI foods, the sugars will be lower (improved DM if present) and weight loss will occur. I will start him on ADIPEX-P. I advised him of the State's rules requiring at least a four pound loss in the next four weeks and that I can only refill the Rx a total of three times in the next nine months. I further advised him that he will need to come in for the two monthly follow-up visits to get the refills. Orders and follow up as documented in patient record; We reviewed diet, exercise and weight control; We reviewed medications and possible side effects. All questions were answered; I recommended sodium restriction, both adding salt and decreasing processed foods; * June Bangura MA - 06/01/2018 9:50 AM EST Hypertension: He is taking his medication as ordered. He Is not checking BP at home. His readings UNKNOWN in normal range. He exercises (he works 7 days a week) He has having headaches, has been getting dizzy, denies getting chest pains, denies palpitations. Depression: He is taking his medications as ordered. He is not having insomnia. He admits to havingchanges in interest, is having depressed mood, denies crying spells, is not having fatigue, is not having problems concentrating, has changes in appetite, denies a visible slowing of physical and emotional reactions, has emotional distress and restlessness, has suicidal ideation but does not act upon them. He takes care of his who is not well. in this encounter* Mariangel Moody APRN-VICENTE - 11/16/2018 10:50 AM EDT History of Present Illness Chief Complaint Patient presents with Medication Refill Medication Refill Depression venlafexine 225 mg daily, bupropion 300 mg daily Hypertension lisinopril 40mg daily BP 132/88 HR 80 Fanta Whitley is a 48 y.o. male who comes in for follow-up for generalized depression disorder. Fanta Whitley 's depression screening is 11. He states work has a lot to do with depression - he works at [employer] in [place] for 17 years - he was on 3rd shift which he had insomnia. He currently works 2nd shift 7 days a week and misses his grand kids etc. He Is taking his medications as ordered. He Is not having insomnia - currently states he changed from 3rd shift to 2nd shift 7 days a week and sleeping has improved-advised does not need Ambien filled - advised since controlled - will need OV to fill in future, he understands. He reports having changes in interest, Is having depressed mood, denies crying spells, Is having fatigue, Is having problems concentrating, denies changes in appetite, admits to a visible slowing of physical and emotional reactions as does see his depression symptoms, denies emotional distress and restlessness, denies suicidal ideation. Fanta Whitley is a 48 y.o. male who comes in for follow-up of hypertension. He indicates that He has noticed a decrease of symptoms referable to elevated blood pressure, current symptoms of blood pressure concerns none to report at this time per patient. . Specifically denies chest pain, confusion, dizziness, headaches and shortness of breath. Current medication regimen is as listed in this record if warranted. He is currently experiencing the following side effects from his medication: none to report. Blood pressure readings taken since the last visit are: BP 132/88 HR 80. Use of agents associated with hypertension: none. History of renal disease: no. Past Medical History: Diagnosis Date Chronic low back pain COPD (chronic obstructive pulmonary disease) Depression Elevated troponin Essential hypertension, benign Lobar pneumonia Rotator cuff disorder Smoker Weight gain Outpatient Medications Prior to Visit Medication Sig Dispense Refill aspirin 81 MG Chew Tab take 81 mg by mouth daily.. buPROPion (WELLBUTRIN XL) 300 MG tablet XL Take 1 tablet by mouth daily. 90 tablet 1 lisinopril 40 MG Tab tablet Take 1 tablet by mouth daily. 90 tablet 1 Venlafaxine HCl 225 MG tablet ER Take 1 tablet by mouth daily. 90 tablet 1 clomiPHENE 50 MG Tab Take 0.5 tablets by mouth daily. (Patient not taking: Reported on 11/16/2018) 15tablet 0 mometasone Furo-Formoterol Fum (DULERA) 200-5 MCG/puff Aerosol inhaler Inhale 2 puffs 2 times daily. (Patient not taking: Reported on 06/01/2018 ) 1 Inhaler 0 phentermine 37.5 MG Tab Take 1 tablet by mouth every morning before breakfast. 30 tablet 0 zolpidem 10 MG Tab tablet Take 1 tablet by mouth at bedtime. 30 tablet 0 No facility-administered medications prior to visit. No Known Allergies Review of Systems Constitutional: Negative for appetite change, chills, diaphoresis, fatigue, fever and unexpected weight change. HENT: Negative for congestion, ear pain, hearing loss, rhinorrhea, sore throat and trouble swallowing. Eyes: Negative for pain, discharge, redness and visual disturbance. Respiratory: Negative for apnea, cough, choking, chest tightness, shortness of breath and wheezing. Cardiovascular: Negative for chest pain, palpitations and leg swelling. Gastrointestinal: Negative for abdominal distention, abdominal pain, anal bleeding, blood in stool,constipation, diarrhea and nausea. Endocrine: Negative. Genitourinary: Negative for decreased urine volume, difficulty urinating, dysuria, flank pain, frequency, hematuria and urgency. Musculoskeletal: Negative for arthralgias, back pain, gait problem, joint swelling, myalgias and neck pain. Skin: Negative. Allergic/Immunologic: Negative. Neurological: Negative for dizziness, tremors, syncope, weakness, light- headedness, numbness and headaches. Hematological: Negative. Psychiatric/Behavioral: Negative. Vitals: Blood pressure 132/88, pulse 80, temperature 96.3 F (35.7 C), temperature source Temporal, resp. rate 18, height 1.803 m (5' 11), weight (!) 145.6 kg (321 lb), SpO2 98 %. Physical Exam Constitutional: He is oriented to person, place, and time. He appears well- developed and well-nourished. Cardiovascular: Normal rate, regular rhythm, normal heart sounds and intact distal pulses. Pulmonary/Chest: Effort normal and breath sounds normal. Musculoskeletal: He exhibits no edema. Neurological: He is alert and oriented to person, place, and time. Skin: Skin is warm and dry. Psychiatric: He has a normal mood and affect. His behavior is normal. Judgment and thought content normal. Nursing note and vitals reviewed. Neurologic Exam Mental Status Oriented to person, place, and time. Assessment and Plan 1. Mild episode of recurrent major depressive disorder Stable, will continue current med. He was interested in possibly coming off of the Wellbutrin in the future as he originally started 3 years ago for smoking, advised that if he does, he needs to go on the 150 mg dose prior to stopping. - Venlafaxine HCl 225 MG tablet ER; Take 1 tablet by mouth daily. Dispense: 90 tablet; Refill: 1 - buPROPion (WELLBUTRIN XL) 300 MG tablet XL; Take 1 tablet by mouth daily. Dispense: 90 tablet; Refill: 1 2. Essential hypertension Stable, will continue current med. - lisinopril 40 MG Tab tablet; Take 1 tablet by mouth daily. Dispense: 90 tablet; Refill: 1 3. Routine lab draw Will check results. - CBC, EDIF, PLATELET; Future - COMPREHENSIVE METABOLIC PANEL; Future - LIPID PANEL W CALCULATED LDL; Future - TSH W/FT4 REFLEX; Future Return to clinic in 6 months or sooner prn. * Cherrie Shaffer LPN - 11/16/2018 10:50 AM EDT Chief Complaint Patient presents with Medication Refill Medication Refill Depression venlafexine 225 mg daily, bupropion 300 mg daily Hypertension lisinopril 40mg daily BP 132/88 HR 80 Fanta Whitley is a 48 y.o. male who comes in for follow-up for generalized depression disorder. Fanta Whitley 's depression screening is 11. He states work has a lot to do with depression - he works at [employer] in [place] for 17 years - he was on 3rd shift which he had insomnia. He currently works 2nd shift 7 days a week and misses his grand kids etc. It is stating when reorder medications - venlafaxine is not on formulary and requesting to order duloxetine. He Is taking his medications as ordered. He Is not having insomnia - currently states he changed from 3rd shift to 2nd shift 7 days a week and sleeping has improved-advised does not need Ambien filled - advised since controlled - will need OV to fill in future, he understands. He reports having changes in interest, Is having depressed mood, denies crying spells, Is having fatigue, Is having problems concentrating, denies changes in appetite, admits to a visible slowing of physical and emotional reactions as does see his depression symptoms, denies emotional distress and restlessness, denies suicidal ideation. Fanta Whitley is a 48 y.o. male who comes in for follow-up of hypertension. He indicates that He has noticed a decrease of symptoms referable to elevated blood pressure, current symptoms of blood pressure concerns none to report at this time per patient. . Specifically denies chest pain, confusion, dizziness, headaches and shortness of breath. Current medication regimen is as listed in this record if warranted. He is currently experiencing the following side effects from his medication: none to report. Blood pressure readings taken since the last visit are: BP 132/88 HR 80. Use of agents associated with hypertension: none. History of renal disease: no. documented in this encounter* Roberto Macdonald MD - 05/14/2019 8:40 AM EST Fanta Whitley is a 48 y.o. male seen for a follow up on his problems listed below. Chief Complaint Patient presents with Depression Hypertension Hypertension: He is taking his medication as ordered. He Is checking BP at home. His readings are in normal range He denies having headaches, denies getting dizzy, denies getting chest pains, denies palpitations. Depression: His depression is improving. He is taking his medications as ordered. He is not having insomnia. He denies having changes in interest, is not having depressed mood, denies crying spells, is having fatigue, is having problems concentrating, denies changes in appetite, denies a visible slowing of physical and emotional reactions, has emotional distress and restlessness, denies suicidal ideation. Hyperlipidemia: He is taking medications for elevated cholesterol. Lab Results Component Value Date CHOLESTEROL 189 05/13/2019 TRIG 194 (H) 05/13/2019 HDL 29 (L) 05/13/2019 LDLCALC 121 (H) 05/13/2019 His ratio of Total Cholesterol/HDL was 6.5. There is not a FH of IHD or stroke. Patient Active Problem List Diagnosis Benign hypertension Chronic bronchitis Chronic low back pain Seasonal allergic rhinitis Major depressive disorder Insomnia due to medical condition Chronic fatigue Polyuria Morbid obesity due to excess calories Hypertriglyceridemia Lumbar strain, initial encounter Outpatient Medications Prior to Visit: aspirin 81 MG Chew Tab, take 81 mg by mouth daily.. buPROPion (WELLBUTRIN XL) 300 MG tablet XL, Take 1 tablet by mouth daily. lisinopril 40 MG Tab tablet, Take 1 tablet by mouth daily. Venlafaxine HCl 225 MG tablet ER, Take 1 tablet by mouth daily. diclofenac EC [address] tablet, Take 1 tablet by mouth 2 times daily. (Patient not taking: Reported on 05/14/2019) methocarbamol 500 MG Tab, Take 2 tablets by mouth 3 times daily as needed for Other (muscle spasm).(Patient not taking: Reported on 05/14/2019) Social History Tobacco Use Smoking status: Former Smoker Types: Cigarettes Last attempt to quit: 04/2016 Years since quittin.0 Smokeless tobacco: Never Used Substance Use Topics Alcohol use: Yes Comment: Rarely Drug use: No family history includes Colorectal Cancer in his maternal grandmother; Diabetes in his mother; Hypertension in his mother; Obesity in his mother. OBJECTIVE: Blood pressure 122/72, pulse 71, temperature 97.9 F (36.6 C), temperature source Temporal, height 1.803 m (5' 11), weight (!) 146.2 kg (322 lb 6.4 oz), SpO2 96 %. Body mass index is 44.97 kg/m . General Appearance: alert, well appearing, in no acute distress, oriented to person, place, and time and morbidly obese. Neck: supple, no significant adenopathy, thyroid exam: thyroid is normal in size without nodules ortenderness, normal C-spine, no tenderness, full ROM without pain CVS exam: normal rate, regular rhythm, normal S1, S2, no murmurs, rubs, clicks or gallops.; Chest: clear to auscultation, no wheezes, rales or rhonchi, symmetric air entry. Exam of extremities: no pedal edema noted He is appropriately groomed with normal affect. ASSESSMENT: ICD-10-CM 1. Mild episode of recurrent major depressive disorder F33.0 buPROPion (WELLBUTRIN XL) 300 MG tablet XL Venlafaxine HCl 225 MG tablet ER 2. Essential hypertension I10 lisinopril 40 MG Tab tablet PLAN: His depression is improved and I advised him to continue current treatment plan. His HT is stable, I advised him to continue current treatment plan. We discussed his low HDL, reviewed management options, and discussed the plan of treatment. I advised him to start aerobic exercise. We discussed his morbid obesity, reviewed management options, and discussed the plan of treatment. I advised him to try the Phentermine that he got last Dec and never started. He will take 1/2 tab for 1st 4 days.. . Orders and follow up as documented in patient record; We reviewed diet, exercise and weight control; We reviewed medications and possible side effects. All questions were answered; I recommended sodium restriction, both adding salt and decreasing processed foods; We discussed low fat, low cholesterol diet, and increasing aerobic exercise to raise the HDL; ERT * Tabitha Dorman LPN - 05/14/2019 8:40 AM NORBERT Hypertension: He is taking his medication as ordered. He Is checking BP at home. His readings are in normal range He denies having headaches, denies getting dizzy, denies getting chest pains, denies palpitations. Depression: His depression is improving. He is taking his medications as ordered. He is not having insomnia. He denies having changes in interest, is not having depressed mood, denies crying spells, is having fatigue, is having problems concentrating, denies changes in appetite, denies a visible slowing of physical and emotional reactions, has emotional distress and restlessness, denies suicidal ideation. documented in this encounter* Roberto Macdonald MD - 10/31/2019 8:50 AM EDT Fanta Whitley is a 49 y.o. male seen for a follow up on his problems listed below. Chief Complaint Patient presents with Hypertension Depression Hypertension: He is taking his medication as ordered. He Is checking BP at home. His readings are in normal range. He exercises 0 times a day. He denies having headaches, denies getting dizzy, deniesgetting chest pains, denies palpitations. Depression: His depression is stable. He is taking his medications as ordered. Symptoms present now: sadness yes, tiredness no, trouble focusing or concentrating yes, unhappiness yes, anger yes, irritability no, frustration yes, loss of interests in pleasurable or fun activities yes, sleep problems (too little or too much) no, fatigue no, anxiety yes, suicidal ideation no. He states he has low back pain with left sciatica and b/l feet burning and numbness Patient Active Problem List Diagnosis Benign hypertension Chronic bronchitis Chronic low back pain Seasonal allergic rhinitis Major depressive disorder Insomnia due to medical condition Chronic fatigue Polyuria Morbid obesity due to excess calories Hypertriglyceridemia Lumbar strain, initial encounter Outpatient Medications Prior to Visit: aspirin 81 MG Chew Tab, take 81 mg by mouth daily.. buPROPion (WELLBUTRIN XL) 300 MG tablet XL, Take 1 tablet by mouth daily. lisinopril 40 MG Tab tablet, Take 1 tablet by mouth daily. Venlafaxine HCl 225 MG tablet ER, Take 1 tablet by mouth daily. diclofenac EC [address] tablet, Take 1 tablet by mouth 2 times daily. (Patient not taking: Reported on 05/14/2019) methocarbamol 500 MG Tab, Take 2 tablets by mouth 3 times daily as needed for Other (muscle spasm).(Patient not taking: Reported on 05/14/2019) Social History Tobacco Use Smoking status: Former Smoker Types: Cigarettes Last attempt to quit: 04/2016 Years since quittin.5 Smokeless tobacco: Never Used Substance Use Topics Alcohol use: Yes Comment: Rarely Drug use: No family history includes Colorectal Cancer in his maternal grandmother; Diabetes in his mother; Hypertension in his mother; Obesity in his mother. System Review: General ROS: negative for - fatigue or sleep disturbance, Cardiovascular ROS: no chest pain or dyspnea on exertion, Respiratory ROS: no cough, shortness of breath at rest, or wheezing,Gastrointestinal ROS: no abdominal pain, no change in bowel habits, no black or bloody stools, no he artburn, Genito-Urinary ROS: no dysuria, trouble voiding, or hematuria; Musculoskeletal ROS: positive for - joint pain & muscle pain (back and legs); Neurological ROS: negative for - dizziness, weakness, or headaches, positive for - paresthesias; . OBJECTIVE: Blood pressure 130/80, pulse 64, temperature 96.1 F (35.6 C), temperature source Temporal, height 1.803 m (5' 11), weight (!) 140 kg (308 lb 9.6 oz), SpO2 98 %. Body mass index is 43.04 kg/m . General Appearance: alert, well appearing, in no acute distress, oriented to person, place, and time and morbidly obese. Neck: supple, no significant adenopathy, carotids upstroke normal bilaterally, no bruits, thyroid exam: thyroid is normal in size without nodules or tenderness, normal C-spine, no tenderness, full ROM without pain CVS exam: normal rate, regular rhythm, normal S1, S2, no murmurs, rubs, clicks or gallops.; Chest: clear to auscultation, no wheezes, rales or rhonchi, symmetric air entry. Back: extension limited, flexion limited, pain with motion noted during exam, tenderness noted L/S spine centrally Neurological exam reveals normal muscle tone, no tremors, strength 5/5, decreased pinprick feet to proximal foot. Exam of extremities: no pedal edema noted He is appropriately groomed with normal affect. ASSESSMENT: ICD-10-CM 1. Essential hypertension I10 lisinopril 40 MG tablet 2. Mild episode of recurrent major depressive disorder F33.0 Venlafaxine HCl 225 MG tablet ER buPROPion (Wellbutrin XL) 300 MG tablet XL 3. Elevated fasting glucose R73.01 POCT HEMOGLOBIN A1C 4. Burning sensation of feet R20.8 pregabalin 75 MG capsule 5. Idiopathic peripheral neuropathy G60.9 6. Chronic midline low back pain with left-sided sciatica M54.42 G89.29 PLAN: His HT is stable, I advised him to continue current treatment plan. His depression is stable, I advised him to continue current treatment plan. We discussed his neuropathy with foot burning, reviewed management options, and discussed the plan of treatment. I advised him to try the Lyrica 75 mg at bedtime but may increase to 50 mg if needed. I advised him of the normal HgbA1C. We discussed his lumbago, reviewed management options, and discussed the plan of treatment. I advised him to do his exercises from PT. If not improving, will get MRI. . Orders and follow up as documented in patient record; We reviewed diet, exercise and weight control; We reviewed medications and possible side effects. All questions were answered; I recommended sodium restriction, both adding salt and decreasing processed foods; * Tabitha Dorman LPN - 10/31/2019 8:50 AM EDT Hypertension: He is taking his medication as ordered. He Is checking BP at home. His readings are in normal range. He exercises 0 times a day. He denies having headaches, denies getting dizzy, deniesgetting chest pains, denies palpitations. Depression: His depression is stable. He is taking his medications as ordered. Symptoms present now: sadness yes, tiredness no, trouble focusing or concentrating yes, unhappiness yes, anger yes, irritability no, frustration yes, loss of interests in pleasurable or fun activities yes, sleep problems (too little or too much) no, fatigue no, anxiety yes, suicidal ideation no. . He states his back and b/l feet are painful all the time. Burning and numbness documented in this encounter* Roberto Macdonald MD - 12/30/2019 6:50 PM EDT Fanta Whitley is a 49 y.o. male seen for a follow up on his problems listed below. Chief Complaint Patient presents with Anxiety Depression Patient is here to follow up on his anxiety and depression. Anxiety: He admits to having insomnia, sometimes palpitations, and he admits to having irritabilitywhile on his medication. He said his anxiety Is not improving. He states that it has gotten a lot worst the last month or so. Depression: His depression is worsened. He is taking his medications as ordered. Symptoms present now : sadness yes, tiredness yes, trouble focusing or concentrating yes, unhappiness yes, anger yes, irritability yes, frustration yes, loss of interests in pleasurable or fun activities yes, sleep problems (too little or too much) yes, fatigue yes, anxiety yes, suicidal ideation yes. Lumbago: He has chronic low back pain with left sided sciatica, denies leg weakness. Neuropathy: He would like to change to gabapentin since his insurance will not cover the Lyrica forhis neuropathy in both feet. He never got the Lyrica approved. Dizziness: and the feeling of blacking out, when bending over for a period of time doing things (cutting wood using the chainsaw) and is wondering if it is due to his heart. When he was 17 hd cardiaccath which showed abnormal coronary arteries. Patient Active Problem List Diagnosis Benign hypertension Chronic bronchitis Chronic low back pain Seasonal allergic rhinitis Major depressive disorder Insomnia due to medical condition Chronic fatigue Polyuria Morbid obesity due to excess calories Hypertriglyceridemia Lumbar strain, initial encounter Outpatient Medications Prior to Visit: aspirin 81 MG Chew Tab, take 81 mg by mouth daily.. buPROPion (Wellbutrin XL) 300 MG tablet XL, Take 1 tablet by mouth daily. lisinopril 40 MG tablet, Take 1 tablet by mouth daily. Venlafaxine HCl 225 MG tablet ER, Take 1 tablet by mouth daily. pregabalin 75 MG capsule, Take 1 capsule by mouth at bedtime. Social History Tobacco Use Smoking status: Former Smoker Types: Cigarettes Last attempt to quit: 04/2016 Years since quittin.7 Smokeless tobacco: Never Used Substance Use Topics Alcohol use: Yes Comment: Rarely Drug use: No family history includes Colorectal Cancer in his maternal grandmother; Diabetes in his mother; Hypertension in his mother; Obesity in his mother. OBJECTIVE: Vitals: 12/30/191927 BP: 140/88 Pulse: 74 Temp: 97.9 degrees F (36.6 degrees C) TempSrc: Temporal SpO2: 97% Weight: 134.5 kg (296 lb 9.6 oz) Height: 1.803 m (5' 11) Body mass index is 41.37 kg/m . General Appearance: alert, well appearing, in no acute distress, oriented to person, place, and time and morbidly obese. Neck: supple, no significant adenopathy, thyroid exam: thyroid is normal in size without nodules ortenderness, CVS exam: normal rate, regular rhythm, normal S1, S2, no murmurs, rubs, clicks or gallops.; Chest: clear to auscultation, no wheezes, rales or rhonchi, symmetric air entry. Abdominal exam: Abdomen soft, non-tender. BS normal. No masses, organomegaly, positive findings: obese Back: extension limited, flexion limited, pain with motion noted during exam, tenderness noted L/S spine centrally Exam of extremities: no pedal edema noted Neurological exam reveals normal muscle tone, no tremors, strength 5/5. He is appropriately groomed with flat affect. ASSESSMENT: ICD-10-CM 1. Moderate episode of recurrent major depressive disorder F33.1 clomiPRAMINE 25 MG capsule 2. Chronic left-sided low back pain with left-sided sciatica M54.42 AMB REFERRAL TO PHYSICAL MEDICINE REHAB G89.29 3. Essential hypertension I10 4. Morbid obesity due to excess calories E66.01 5. Neuropathy G62.9 gabapentin 100 MG capsule 6. Postural dizziness with presyncope R42 AMB REFERRAL TO CARDIOVASCULAR MEDICINE R55 PLAN: His depression is uncontrolled, I will add Rx to current treatment plan. I advised him of the actions of the prescribed medication, discussed possible side effects, and advised as to possible drug interactions.He wants to stay off work till depression and back are improved. His HT is stable, I advised him to continue current treatment plan. We discussed his neuropathy (? Cause), reviewed management options, and discussed the plan of treatment. I advised him to try the Gabapentin. We discussed his lumbago and sciatica, reviewed management options, and discussed the plan of treatment. I advised him to see Dr Barrett. We discussed pain management based on what he says. We discussed his postural dizziness which may just be decreased venous return related to his size when squatting over.We discussed his heart history as a teen and I will get cardiology opinion re same. Orders and follow up as documented in patient record; We reviewed diet, exercise and weight control; We reviewed medications and possible side effects. All questions were answered; I recommended sodium restriction, both adding salt and decreasing processed foods; We discussed low fat, low cholesterol diet, and increasing aerobic exercise to raise the HDL; * June Bangura MA - 12/30/2019 6:50 PM EDTSummary: anxiety and depression Anxiety: He admits to having insomnia, sometimes palpitations, and he admits to having irritabilitywhile on his medication. He said his anxiety Is not improving. He states that it has gotten a lot worst the last month or so. Depression: His depression is worsened. He is taking his medications as ordered. Symptoms present now : sadness yes, tiredness yes, trouble focusing or concentrating yes, unhappiness yes, anger yes, irritability yes, frustration yes, loss of interests in pleasurable or fun activities yes, sleep problems (too little or too much) yes, fatigue yes, anxiety yes, suicidal ideation yes. His has a form that needs filled out for a work excuse. He would like to talk to you about taking the gabapentin since his insurance will not cover the Lyrica for his neuropathy in his feet and legs. He is also having dizziness, the feeling of blacking out, when bending over for a period of time doing things (cutting wood using the chainsaw) and is wondering if it is due to his heart. documented in this encounter* Roberto Macdonald MD - 01/30/2020 11:10 AM EDT Fanta Whitley is a 49 y.o. male seen for a follow up on his problems listed below. Chief Complaint Patient presents with Depression Neuropathy Depression: His depression is worsened. He is taking his medications as ordered. Symptoms present now : sadness yes, tiredness yes, trouble focusing or concentrating yes, unhappiness yes, anger yes, irritability yes, frustration yes, loss of interests in pleasurable or fun activities yes, sleep problems (too little or too much) no, fatigue yes, anxiety yes, suicidal ideation no. Neuropathy: he states he thinks that Gabapentin is helping a little with B/L feet pain. Sees a painmanagement doctor next week. Patient Active Problem List Diagnosis Benign hypertension Chronic bronchitis Chronic low back pain Seasonal allergic rhinitis Major depressive disorder Insomnia due to medical condition Chronic fatigue Morbid obesity due to excess calories Hypertriglyceridemia Outpatient Medications Prior to Visit: aspirin 81 MG Chew Tab, take 81 mg by mouth daily.. buPROPion (Wellbutrin XL) 300 MG tablet XL, Take 1 tablet by mouth daily. lisinopril 40 MG tablet, Take 1 tablet by mouth daily. Venlafaxine HCl 225 MG tablet ER, Take 1 tablet by mouth daily. clomiPRAMINE 25 MG capsule, Take 1 capsule by mouth at bedtime. gabapentin 100 MG capsule, Take 1 capsule by mouth 3 times daily. Social History Tobacco Use Smoking status: Former Smoker Types: Cigarettes Quit date: 04/2016 Years since quittin.8 Smokeless tobacco: Never Used Substance Use Topics Alcohol use: Yes Comment: Rarely Drug use: Yes Types: Marijuana family history includes Colorectal Cancer in his maternal grandmother; Diabetes in his mother; Hypertension in his mother; Obesity in his mother. OBJECTIVE: Vitals: 01/30/20 1127 BP: 130/80 Pulse: 78 Temp: 96 degrees F (35.6 degrees C) TempSrc: Temporal SpO2: 95% Weight: 131.6 kg (290 lb 3.2 oz) Height: 1.803 m (5' 11) Body mass index is 40.47 kg/m . General Appearance: alert, well appearing, in no acute distress, oriented to person, place, and time and morbidly obese. He is appropriately groomed with normal affect. ASSESSMENT: ICD-10-CM 1. Neuropathy G62.9 gabapentin 300 MG capsule PLAN: We discussed his neuropathy, reviewed management options, and discussed the plan of treatment. I advised him to increase the dose of his Gabapentin. . Orders and follow up as documented in patient record; We reviewed diet, exercise and weight control; We reviewed medications and possible side effects. All questions were answered; * Tabitha Dorman LPN - 01/30/2020 11:10 AM EDT Depression: His depression is worsened. He is taking his medications as ordered. Symptoms present now : sadness yes, tiredness yes, trouble focusing or concentrating yes, unhappiness yes, anger yes, irritability yes, frustration yes, loss of interests in pleasurable or fun activities yes, sleep problems (too little or too much) no, fatigue yes, anxiety yes, suicidal ideation no. Neuropathy: he states he thinks that Gabapentin is helping a little with B/L feet pain. Sees a pain management drYamel Next week. documented in this encounter* Roberto Macdonald MD - 02/21/2020 2:30 PM EDT Fanta Whitley is a 49 y.o. male seen for a follow up on his problems listed below. Chief Complaint Patient presents with Neuropathy Results Discuss EMG results Neuropathy: His neuropathy is not changed. He is being treated for neuropathy. Symptoms include numbness, burning and tingling. His Gabapentin was increased on 01/30/20 and when he started higher dosehe was having heartburn. He took it for about 1 week and had heartburn; heartburn resolved when he backed dose back to 300 mg once daily at bedtime. ENG showed: 1. 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 No evidence on either side for lumbosacral radiculopathy, lumbosacral plexus disorder or other peripheral nerve disorder Patient Active Problem List Diagnosis Benign hypertension Chronic bronchitis Chronic low back pain Seasonal allergic rhinitis Major depressive disorder Insomnia due to medical condition Chronic fatigue Morbid obesity due to excess calories Hypertriglyceridemia Dizziness and giddiness Outpatient Medications Prior to Visit: aspirin 81 MG Chew Tab, take 81 mg by mouth daily.. buPROPion (Wellbutrin XL) 300 MG tablet XL, Take 1 tablet by mouth daily. gabapentin 300 MG capsule, Take 1 capsule by mouth 2 times daily. (Patient taking differently: [id number] mg by mouth daily. ) Venlafaxine HCl 225 MG tablet ER, Take 1 tablet by mouth daily. lisinopril 40 MG tablet, Take 1 tablet by mouth daily. Social History Tobacco Use Smoking status: Former Smoker Types: Cigarettes Quit date: 04/2016 Years since quittin.8 Smokeless tobacco: Never Used Substance Use Topics Alcohol use: Yes Comment: Rarely Drug use: Yes Types: Marijuana family history includes Colorectal Cancer in his maternal grandmother; Diabetes in his mother; Hypertension in his mother; Obesity in his mother. OBJECTIVE: Vitals: 02/21/20 1431 BP: 140/80 Pulse: 80 Temp: 96.2 degrees F (35.7 degrees C) SpO2: 97% Weight: 133 kg (293 lb 3.2 oz) Height: 1.803 m (5' 11) Body mass index is 40.89 kg/m . General Appearance: alert, well appearing, in no acute distress, oriented to person, place, and time and morbidly obese. Neck: supple, no significant adenopathy, thyroid exam: thyroid is normal in size without nodules ortenderness, normal C-spine, no tenderness, full ROM without pain CVS exam: normal rate, regular rhythm, normal S1, S2, no murmurs, rubs, clicks or gallops.; Chest: clear to auscultation, no wheezes, rales or rhonchi, symmetric air entry. Back: extension limited, flexion limited, tenderness noted L/S spine centrally Exam of extremities: no pedal edema noted He is appropriately groomed with normal affect. ASSESSMENT: ICD-10-CM 1. Essential hypertension I10 lisinopril 40 MG tablet 2. Lumbar radiculopathy M54.16 MRI SPINE LUMBAR WITHOUT CONTRAST 3. Postural dizziness with presyncope R42 R55 4. Anxiety disorder, unspecified type F41.9 propranolol (Inderal LA) 60 MG Cap SR 24HR 5. Neuropathy G62.9 gabapentin 100 MG capsule PLAN: His HT is stable, I advised him to continue current treatment plan. We discussed his lumbago and sciatica, reviewed management options, and discussed the plan of treatment. I advised him to get a MRI. His neuropathy is uncontrolled, I advised him to increase dose of his medication. See orders for details. Orders and follow up as documented in patient record; We reviewed diet, exercise and weight control; I recommended sodium restriction, both adding salt and decreasing processed foods; * Nikia Hernandez LPN - 02/21/2020 2:30 PM EDT Neuropathy: His neuropathy is not changed. He is being treated for neuropathy. Symptoms include numbness, burning and tingling. His Gabapentin was increased on 01/30/20 and when he started higher dosehe was having heartburn. He took it for about 1 week and had heartburn; heartburn resolved when he backed dose back to 300 mg once daily at bedtime. documented in this encounter* Enrico Hull, - 03/06/2020 11:15 AM EDT Chief Complaint Patient presents with Lower Back - Pain HPI Pain Radiation To: left lower back, buttock and down back of leg Pain Duration: since 2009 Pain Frequency: constant Pain Quality: aching, shooting, sharp, dull Factors That Aggravate Pain: activity Factors That Relieve Pain: rest Dictation on: 03/06/2020 4:20 PM by: ENRICO HULL [[email or web address]] EXAM Bilateral hips examined today. INSPECTION: No swelling. No ecchymosis. GAIT: Non-antalgic. PALPATION: No tenderness. No tenderness at trochanteric bursa. ROM: Full AROM. STRENGTH: 5/5 NAZANIN: Pos-R FADIR: Neg. General medical exam: Constitutional: A&O x 3. No acute distress HEENT: EOMI. Conjunctiva normal. Trachea midline. Head: AT , NC Neck: Supple CV : Normal rate Pulm: No audible wheezing. No respiratory distress Neuro: No acute focal neurological deficits. Skin: Warm. Dry. No diaphoresis. Psych: Normal mood and affect. Judgement normal. Nursing notes and vitals reviewed. Visit Vitals Temp 98 F (36.7 C) (Temporal) Ht 1.803 m (5' 11) Wt 132.9 kg (293 lb) BMI 40.87 kg/m ROS Gen: No recent fevers Skin: No new rash Eyes: No blurred vision Resp: No recent wheezing GI : No acute loss of bowel : No acute incontinence Heme: No easy bleeding or bruising Endocrine: No extreme hot/cold intolerance MSK : Negative except per HPI Neuro: Negative except per HPI PMH, PSH, FMH, social, meds and allergies reviewed and updated in chart. LARGE JOINT/BURSA INJECTION AND/OR ASPIRATION: L hip joint Date/Time: 03/06/2020 11:15 AM Supporting Documentation Indications: pain Procedure Details: Location: hip - L hip joint Local Anesthetic: lidocaine 1% Guidance: ultrasound Needle size: 22 G Medication Verification: I have personally verified and performed the final check of the medication(s) used in this procedure prior to administration. The following items were included during the verification process for medication(s) administered: drug name, strength, volume, expiration, physical integrity and appearance of the medication(s). Medications administered: 3 mL lidocaine 10 mg/mL; 1 mL triamcinolone 40 MG/ML Patient tolerance: patient tolerated the procedure well with no immediate complications Consent: Consent was obtained prior to the procedure after discussion of the risks, benefits and alternatives, and expected outcomes were discussed with the patient. The possibilities of reaction to medication, bleeding, infection, the need for additional procedures, failure to diagnosis a condition, and creating a complication requiring operation were discussed with the patient. The patient concurred with the proposed plan, giving consent. Preparation: Patient was prepped in the usual sterile fashion. The patient was prepped with chlorhexidine. *Portions of this note may have been created with [employer] or other software which leads to grammatical and typographical errors which are not printing supplies sales representative of the intent with my spoken words. Clinical periodontal assistant/AT/MA was acting as a scribe today for this note. I have performed all essentialcomponents of the history, and physical exam. I have confirmed the diagnosis and developed a plan of care at this visit. I have reviewed the note following the visit and have made edits as appropriate to my evaluation and plan of care. Enrico Hull DO * Elvin Randle, [facility] - 03/06/2020 11:15 AM EDT Associated Order(s): LARGE JOINT/BURSA INJECTION AND/OR ASPIRATION: L hip joint Post-Procedure Diagnose(s): Chronic left-sided low back pain, unspecified whether sciatica present Chief Complaint Patient presents with Lower Back - Pain HPI Pain Radiation To: left lower back, buttock and down back of leg Pain Duration: since 2009 Pain Frequency: constant Pain Quality: aching, shooting, sharp, dull Factors That Aggravate Pain: activity Factors That Relieve Pain: rest EXAM Bilateral hips examined today. INSPECTION: No swelling. No ecchymosis. GAIT: Non-antalgic. PALPATION: No tenderness. No tenderness at trochanteric bursa. ROM: Full AROM. STRENGTH: 5/5 NAZANIN: Pos-R FADIR: Neg. General medical exam: Constitutional: A&O x 3. No acute distress HEENT: EOMI. Conjunctiva normal. Trachea midline. Head: AT , NC Neck: Supple CV : Normal rate Pulm: No audible wheezing. No respiratory distress Neuro: No acute focal neurological deficits. Skin: Warm. Dry. No diaphoresis. Psych: Normal mood and affect. Judgement normal. Nursing notes and vitals reviewed. Visit Vitals Temp 98 F (36.7 C) (Temporal) Ht 1.803 m (5' 11) Wt 132.9 kg (293 lb) BMI 40.87 kg/m ROS Gen: No recent fevers Skin: No new rash Eyes: No blurred vision Resp: No recent wheezing GI : No acute loss of bowel : No acute incontinence Heme: No easy bleeding or bruising Endocrine: No extreme hot/cold intolerance MSK : Negative except per HPI Neuro: Negative except per HPI PMH, PSH, FMH, social, meds and allergies reviewed and updated in chart. LARGE JOINT/BURSA INJECTION AND/OR ASPIRATION: L hip joint Date/Time: 03/06/2020 11:15 AM Supporting Documentation Indications: pain Procedure Details: Location: hip - L hip joint Local Anesthetic: lidocaine 1% Guidance: ultrasound Needle size: 22 G Medication Verification: I have personally verified and performed the final check of the medication(s) used in this procedure prior to administration. The following items were included during the verification process for medication(s) administered: drug name, strength, volume, expiration, physical integrity and appearance of the medication(s). Medications administered: 3 mL lidocaine 10 mg/mL; 1 mL triamcinolone 40 MG/ML Patient tolerance: patient tolerated the procedure well with no immediate complications Consent: Consent was obtained prior to the procedure after discussion of the risks, benefits and alternatives, and expected outcomes were discussed with the patient. The possibilities of reaction to medication, bleeding, infection, the need for additional procedures, failure to diagnosis a condition, and creating a complication requiring operation were discussed with the patient. The patient concurred with the proposed plan, giving consent. Preparation: Patient was prepped in the usual sterile fashion. The patient was prepped with chlorhexidine. *Portions of this note may have been created with [employer] or other software which leads to grammatical and typographical errors which are not printing supplies sales representative of the intent with my spoken words. documented in this encounter* Roberto Macdonald MD - 03/12/2020 12:20 PM EDT Fanta Whitley is a 49 y.o. male seen for a follow up on his problems listed below. Chief Complaint Patient presents with Anxiety Neuropathy Anxiety: He Is taking his medication as ordered. He has not noticed a decrease in symptoms. He admits to insomnia, admits to mood swings, denies palpitations, admits to irritability. He denies side effects from medication. He went to [facility] yesterday and was instructed to stop taking Propanolol and decrease Bupropion and Venlafaxine. They would like to wean him off these medications to try something different. Neuropathy: His neuropathy is improved. He is being treated for neuropathy. Symptoms include numbness, burning and tingling. Patient Active Problem List Diagnosis Chronic bronchitis Chronic low back pain Seasonal allergic rhinitis Major depressive disorder Insomnia due to medical condition Chronic fatigue Morbid obesity due to excess calories Hypertriglyceridemia Dizziness and giddiness Essential hypertension Lumbar radiculopathy Neuropathy Outpatient Medications Prior to Visit: aspirin 81 MG Chew Tab, take 81 mg by mouth daily.. buPROPion (Wellbutrin XL) 300 MG tablet XL, Take 1 tablet by mouth daily. gabapentin 100 MG capsule, Take 1 capsule by mouth daily every morning. Take the 300 mg at hs also gabapentin 300 MG capsule, Take 1 capsule by mouth 2 times daily. (Patient taking differently: [id number] mg by mouth daily. ) lisinopril 40 MG tablet, Take 0.5 tablets by mouth daily. Venlafaxine HCl 225 MG tablet ER, Take 1 tablet by mouth daily. propranolol (Inderal LA) 60 MG Cap SR 24HR, Take 1 capsule by mouth daily. (Patient not taking: Reported on 03/12/2020) Social History Tobacco Use Smoking status: Former Smoker Types: Cigarettes Quit date: 04/2016 Years since quittin.9 Smokeless tobacco: Never Used Substance Use Topics Alcohol use: Yes Comment: Rarely Drug use: Yes Types: Marijuana family history includes Colorectal Cancer in his maternal grandmother; Diabetes in his mother; Hypertension in his mother; Obesity in his mother. OBJECTIVE: Vitals: 03/12/20 1304 BP: 130/90 Pulse: 64 Temp: 96.7 degrees F (35.9 degrees C) SpO2: 96% Weight: 131.8 kg (290 lb 9.6 oz) Height: 1.803 m (5' 11) Body mass index is 40.53 kg/m . General Appearance: alert, well appearing, in no acute distress, oriented to person, place, and time and morbidly obese. He is appropriately groomed with normal affect. ASSESSMENT: ICD-10-CM 1. Anxiety disorder, unspecified type F41.9 2. Neuropathy G62.9 PLAN: We discussed his anxiety, reviewed management options, and discussed the plan of treatment. I advised him to follow the recommendations from [facility]. We discussed his neuropathy, reviewed management options, and discussed the plan of treatment. I advised him to continue his Gabapentin. . . Orders and follow up as documented in patient record; We reviewed diet, exercise and weight control; We reviewed medications and possible side effects. All questions were answered; * Nikia Hernandez LPN - 03/12/2020 12:20 PM EDT Anxiety: He Is taking his medication as ordered. He has not noticed a decrease in symptoms. He admits to insomnia, admits to mood swings, denies palpitations, admits to irritability. He denies side effects from medication. He went to [facility] yesterday and was instructed to stop taking Propanolol and decrease Bupropion and Venlafaxine. They would like to wean him off these medications to try something different. Neuropathy: His neuropathy is improved. He is being treated for neuropathy. Symptoms include numbness, burning and tingling. documented in this encounter* Porfirio Wilkinson MD - 03/25/2020 3:30 PM EDT [facility] NOTE Chief complaint: Chief Complaint Patient presents with New Patient Neuropathy History of present illness: Fanta Whitley is a 49 y.o. right handed male who presents with neuropathy. The patient states that approximately 2 years ago he developed burning sensation in the bottoms of his feet which has been persistent. The patient states his symptoms have been somewhat progressive. He reports pins and needles symptoms in the bottoms of the feet as well. He denies any significant difficulty with balance. The patient did have an EMG on February 17 of this month which revealed absent sural nerve responses bilaterally and was interpreted as generalized neuropathy. The patient has had blood work including TSH and hemoglobin A1c which did not reveal evidence of abnormalities. Patient denies any symptoms in his hands. He denies any balance difficulties. The patient reports that his mother has difficulty with peripheral nerves. The patient states the symptoms are worse at night when lying flat. The patient did have an MRI scan of the brain which revealed mild degenerative ch anges without significant lumbar canal stenosis foraminal . type Review of Systems Review of Systems: Comments Neurological As above General/constitutional No fevers, weight change, chills, fatigue, night sweats Skin No rash, edema, bruising HEENT No diplopia, dysphagia, dizziness, tinnitus, hearing loss Cardiovascular No dyspnea or chest pain, palpitaitons, peripheral edema Respiratory No SOB, wheezing, rhonchi, cough or rales Gastrointestinal No loss of bowel control, constipation, diarrhea, abdominal pain, nausea or vomiting Genitourinary No loss of bladder control, no sexual dysfunction, hematuria, dysuria Musculoskeletal No myalgias, weakness, atrophy, joint pain, neck pain or back pain Psychiatric No depression, anxeity, hallucinations, delusions Endocrine No changes to hair or nails, abnormal sweating, hot flashess, excessive thirst, polyuria Hematologic No easy bruising, bleeding, swollen lymph nodes Unless directly addressed in ROS or in assessment and plan, patient was instructed to followup positive ROS findings with PCP. Past Medical History: Diagnosis Date Chronic low back pain COPD (chronic obstructive pulmonary disease) Depression Elevated troponin Essential hypertension, benign Lobar pneumonia Rotator cuff disorder Smoker Weight gain Past Surgical History: Procedure Laterality Date VASECTOMY 1995 HEART SURGERY At age 17 - irregular heartbeat Family History Problem Relation Age of Onset Hypertension Mother Obesity Mother Diabetes Mother Colorectal Cancer Maternal Grandmother Social History Socioeconomic History Marital status: Spouse name: Not on file Number of children: Not on file Years of education: Not on file Highest education level: Not on file Occupational History Not on file Social Needs Financial resource strain: Not on file Food insecurity Worry: Not on file Inability: Not on file Transportation needs Medical: Not on file Non-medical: Not on file Tobacco Use Smoking status: Former Smoker Types: Cigarettes Quit date: 04/2016 Years since quittin.9 Smokeless tobacco: Never Used Substance and Sexual Activity Alcohol use: Yes Comment: Rarely Drug use: Yes Types: Marijuana Sexual activity: Yes Partners: Female control/protection: None Lifestyle Physical activity Days per week: Not on file Minutes per session: Not on file Stress: Not on file Relationships Social connections Talks on phone: Not on file Gets together: Not on file Attends orthodoxy service: Not on file Active member of club or organization: Not on file Attends meetings of clubs or organizations: Not on file Relationship status: Not on file Intimate partner violence Fear of current or ex partner: Not on file Emotionally abused: Not on file Physically abused: Not on file Forced sexual activity: Not on file Other Topics Concern Not on file Social History Narrative Not on file No Known Allergies Current Outpatient Medications Medication Sig Dispense Refill buPROPion (Wellbutrin XL) 300 MG tablet XL Take 1 tablet by mouth daily. 90 tablet 1 gabapentin 300 MG capsule Take 1 capsule by mouth at bedtime. (Patient taking differently: Take 300mg by mouth at bedtime. Pt stated that he is taking 300 MG in the morning and [address] Torres santiago.) 90 capsule 1 lisinopril 40 MG tablet Take 0.5 tablets by mouth daily. 90 tablet 1 Venlafaxine HCl 225 MG tablet ER Take 1 tablet by mouth daily. 90 tablet 1 aspirin 81 MG Chew Tab take 81 mg by mouth daily.. gabapentin 100 MG capsule Take 1 capsule by mouth daily every morning. Take the 300 mg at hs also (Patient not taking: Reported on 03/25/2020) 90 capsule 1 No current facility-administered medications for this visit. Physical Exam: BP 128/82 (BP Location: Right arm, BP Position: Sitting) Pulse 69 Temp 98.3 F (36.8 C) (Oral) Ht 1.803 m (5' 11) Wt 132.2 kg (291 lb 6.4 oz) BMI 40.64 kg/m Smoking Status Former Smoker Body mass index is 40.64 kg/m . General: in no acute distress. Neurological Examination Mental status: awake and alert; oriented Speech/language: language fluent; comprehension intact; object naming intact; repetition intact Cranial nerves: CN II: Visual saxena intact to confrontation. PERRL. Normal conjunctivae and lids. sole sewer hand III, IV and : extraocular movements intact. No nystagmus. CN V: Facial sensation is intact to light touch. CN VII: Facial strength normal with symmetric movement. CN VIII: Hearing is grossly intact. CN IX and X: Soft palate elevates symmetrically in the midline CN XI: Shoulder shrug and sternocleidomastoid strength (R/L) 5/5 CN XII: Tongue is midline with normal movement; no fasciculations. Motor: Normal bulk and tone. No pronator drift. Strength testing 5 out of 5 MRC scale throughout Reflexes: symmetric and 3/4 with cross abductors bilaterally Coordination: [id number] intact bilaterally. Sensation: Intact light touch with impaired pinprick to the ankle and slightly impaired proprioception. Gait: Normal without ataxia.With borderline Romberg sign Assessment and Plan: The patient has neuropathic pain in the bottoms of his feet most consistent with a peripheral nerveprocess such as peripheral neuropathy. Patient did have an EMG which revealed absent sural nerve responses which may be consistent with a peripheral neuropathy. The patient has had blood work for thyroid disease and diabetes which have been negative in the past. The patient has responded symptomatically to Gabapentin 300 mg twice daily and is able to sleep but states that his symptoms are worse at night. Possible etiologies include an acquired polyneuropathy affecting the lower extremities which is apparently axonal loss in type based on the EMG. In addition the patient has hyperreflexia which is not consistent with a peripheral nerve process and may be consistent with a central nervous system process. Given the distribution of symptoms bilaterally I'm concerned about a cervical myelopathy contributing to his symptoms. -I'll obtain blood work including SPEP, sedimentation rate, B12, folate, JAMEL assess for peripheral nerve process such as polyneuropathy. I will consider further blood work based upon these results. -I will obtain an MRI of the cervical spine to assess for intraspinal canal process including cervical canal stenosis causing secondary myelopathy. -I agree with continuing the patient on 300 mg of gabapentin twice daily for neuropathic pain. Thismedication can be titrated upwards in response to worsening symptoms -Counseled the patient on the possible diagnosis, prognosis, evaluation, treatment options -I reviewed the patient's previous evaluation including MRI of the lumbar spine, EMG, blood work, and previous office visits personally. -I will see patient back in 2 months to review the above testing and make further recommendations based upon his clinical course and the above results. Porfirio Wilkinson MD 03/25/2020 documented in this encounter* Roberto Macdonald MD - 12/24/2018 6:40 PM EDT SUBJECTIVE: Fanta Whitley is a 48 y.o. male who presents with complaints as stated below. Chief Complaint Patient presents with Back Pain Back pain: He has been having thoracic back pain for 2 day(s), Prior history of back problems: recurrent self limited episodes of low back pain in the past. Pain severity:pain is perceived as severe (6-8 pain scale). Pain quality: aching, sharp, stabbing, burning, tingling or radiating to left leg and left shoulder and arm. He admits to numbness in the legs, and admits to weakness of the legs. Hehas a history of mid to low back pain and numbness in feet, however, he was catching grand kids in pool 2 days ago and pain has become worse and is radiating into left leg and left shoulder/ arm. Patient Active Problem List Diagnosis Benign hypertension Chronic bronchitis Chronic low back pain Seasonal allergic rhinitis Major depressive disorder Insomnia due to medical condition Chronic fatigue Polyuria Morbid obesity due to excess calories Hypertriglyceridemia Lumbar strain, initial encounter Outpatient Medications Prior to Visit Medication Sig Dispense Refill aspirin 81 MG Chew Tab take 81 mg by mouth daily.. buPROPion (WELLBUTRIN XL) 300 MG tablet XL Take 1 tablet by mouth daily. 90 tablet 1 lisinopril 40 MG Tab tablet Take 1 tablet by mouth daily. 90 tablet 1 Venlafaxine HCl 225 MG tablet ER Take 1 tablet by mouth daily. 90 tablet 1 phentermine 37.5 MG Tab Take 1 tablet by mouth every morning before breakfast. 30 tablet 0 zolpidem 10 MG Tab tablet Take 1 tablet by mouth at bedtime. 30 tablet 0 No facility-administered medications prior to visit. Social History Tobacco Use Smoking status: Former Smoker Types: Cigarettes Last attempt to quit: 04/2016 Years since quittin.7 Smokeless tobacco: Never Used Substance Use Topics Alcohol use: Yes Comment: Rarely Drug use: No Past Surgical History: Procedure Laterality Date VASECTOMY 1996 HEART SURGERY At age 17 - irregular heartbeat OBJECTIVE: Blood pressure 128/84, pulse 82, temperature 97.6 F (36.4 C), resp. rate 16, height 1.803 m (5' 11), weight (!) 145.1 kg (319 lb 12.8 oz), SpO2 96 %. Body mass index is 44.6 kg/m . General appearance: alert, well appearing, in no acute distress, oriented to person, place, and time and morbidly obese, CVS exam: normal rate, regular rhythm, normal S1, S2, no murmurs, rubs, clicks or gallops.; Chest: clear to auscultation, no wheezes, rales or rhonchi, symmetric air entry. Back: extension limited, tenderness noted thoracic and L/S spine centrally And thoracic and lumbar paraspinals ASSESSMENT: ICD-10-CM 1. Thoracic myofascial strain, initial encounter S29.019A diclofenac EC [address] tablet methocarbamol 500 MG Tab 2. Benign hypertension I10 3. Morbid obesity due to excess calories E66.01 PLAN: Orders and follow up as documented in patient record; We reviewed diet, exercise and weight control; We reviewed medications and possible side effects. All questions were answered; * Nikia Hernandez LPN - 12/24/2018 6:40 PM EDT Lumbago: He has been having low back pain for 2 day(s), Precipitating factors include: previous back pain. Prior history of back problems: recurrent self limited episodes of low back pain in the past. Pain severity:pain is perceived as severe (6-8 pain scale). Pain quality: aching, sharp, stabbing,burning, tingling or radiating to left leg and left shoulder and arm. He admits to numbness in the legs, and admits to weakness of the legs. He has a history of mid to low back pain and numbness in feet, however, he was catching grand kids in pool 2 days ago and pain has become worse and is radiating into left leg and left shoulder/ arm. documented in this encounter Assessments Diagnosis Essential hypertension - Avelina friedman Unspecified essential hypertension Mild episode of recurrent ma jeo depressive disorder Hypotestosteronemia Morbid obesity Insomnia, unspecified type Diagnosis Mild episode of recurrent major depressive disorder- Primary Essential hypertension Unspecified essential hypertension Routine lab draw Laboratory examination ordered as part of a routine general medical examination Diagnosis Chronic bilateral low back pain with left-sided sciatica- Primary Diagnosis Low back pain, unspecified back pain laterality, unspecified chronicity, with sciatica presence unspecified Diagnosis Low back pain, unspecified back pain laterality, unspecified chronicity, with sciatica presence unspecified Diagnosis Mild episode of recurrent major depressive disorder Essential hypertension Unspecified essential hypertension Diagnosis Mild episode of recurrent major depressive disorder Essential hypertension Unspecified essential hypertension Elevated fasting glucose Impaired fasting glucose Burning sensation of feet Disturbance of skin sensation Idiopathic peripheral neuropathy Unspecified hereditary and idiopathic peripheral neuropathy Chronic midline low back pain with left-sided sciatica Diagnosis Chronic left-sided low back pain with left-sided sciatica Essential hypertension Unspecified essential hypertension Morbid obesity due to excess calories Moderate episode of recurrent major depressive disorder Neuropathy Mononeuritis of unspecified site Postural dizziness with presyncope Diagnosis Neuropathy Mononeuritis of unspecified site Diagnosis Essential hypertension- Primary Unspecified essential hypertension Lumbar radiculopathy Thoracic or lumbosacral neuritis or radiculitis, unspecified Postural dizziness with presyncope Anxiety disorder, unspecified type Neuropathy Mononeuritis of unspecified site Diagnosis Myofascial pain syndrome of thoracic spine Diagnosis Chronic left-sided low back pain, unspecified whether sciatica present- Primary Diagnosis Anxiety disorder, unspecified type Neuropathy Mononeuritis of unspecified site Diagnosis Neuropathy- Primary Mononeuritis of unspecified site Myelopathy Unspecified disease of spinal cord Diagnosis Myelopathy Unspecified disease of spinal cord Diagnosis Thoracic myofascial strain, initial encounter- Primary Benign hypertension Essential hypertension, benign Morbid obesity due to excess calories Diagnosis Lumbar radiculopathy Thoracic or lumbosacral neuritis or radiculitis, unspecified Reason for Referral Status Reason Specialty Diagnoses / Procedures Referred By Contact Referred To Contact New Request Multispecialty Diagnoses Chronic bilateral low back pain with left-sided sciatica Roberto Macdonald MD [address] [place] [address] [facility] [address] [phone] Status Reason Specialty Diagnoses / Procedures Referred By Contact Referred To Contact New Request Cardiovascular Medicine Diagnoses Postural dizziness with presyncope Roberto Macdonald MD [address] [place] [phone] Scheduling Instructions . Status Reason Specialty Diagnoses / Procedures Referred By Contact Referred To Contact New Request Physical Medicin e & Rehabilitation Diagnoses Chronic left-sided low back pain with left-sided sciatica Roberto Macdonald MD [address] [place] [phone] Status Reason Specialty Diagnoses / Procedures Referred By Contact Referred To Contact Auth Not Needed Magnetic Resonance Imaging Diagnoses Lumbar radiculopathy Procedures MRI SPINE LUMBAR WITHOUT CONTRAST [facility] MRI, LUMBAR SPINE Roberto Macdonald MD [address] [place] [phone] [facility] [address] [place] [phone] Status Reason Specialty Diagnoses / Procedures Referred By Contact Referred To Contact New Request Diagnoses Myelopathy Procedures MRI SPINE CERVICAL WITHOUT CONTRAST VA MRI, CERV SPINE Porfirio Wilkinson MD [address] [place] [phone] Status Reason Specialty Diagnoses / Procedures Referred By Contact Referred To Contact Closed Magnetic Resonan ce Imaging Diagnoses Myelopathy Procedures MRI SPINE CERVICAL WITHOUT CONTRAST VA MRI, CERV SPINE Porfirio Wilkinson MD [address] [place] [address] [facility] [address] [place] [phone] Status Reason Specialty Diagnoses / Procedures Referred By Contact Referred To Contact Closed Magnetic Resonan ce Imaging Diagnoses Lumbar radiculopathy Procedures MRI SPINE LUMBAR WITHOUT CONTRAST VA MRI, LUMBAR SPINE Roberto Macdonald MD [address] [place] [phone] [facility] [address] [place] [phone] Summary Purpose Family History No Family History Records FoundNo Family History Records FoundNo Family History Records Found Advance Directives No Advanced Directives Records FoundNo Advanced Directives Records FoundNo Advanced Directives Records Found Additional Source Comments Reason for Visit (unrecogniz ed section and content) Reason Comments Depression Hypertension Obesity he is not active at work Other Reason Comments Medication Refill Medication Refill Depression venlafexine 225 mg d aily, bupropion 300 mg daily Hypertension lisinopril 40mg chas y BP 132/88 HR 80 Reason Comments Medication Refill Reason Comments Chronic Pain Referral request Reason Comments Depression Hypertension Reason Comments Hypertension Depression Reason Comments Anxiety Depression Patient is here to f ted up on his anxiety and depression. Reason Comments Depression Neuropathy Reason Comments Neuropathy Results Discuss EMG results Reason Comments Pain Status Reason Specialty Diagnoses / Procedures Referred By Contact Referred To Contact New Request Orthopaedics Diagnoses Generalized neuropathy Myofascial pain syndrome of thoracic spine William Barrett, DO [address] [id number] Enrico Hull, DO [address] [place], [place] [phone] Reason Comments Anxiety Neuropathy Reason Comments New Patient Neuropathy Status Reason Specialty Diagnoses / Procedures Referre d By Contact Referred To Contact Open Neurology Diagnoses Generalized neuropathy William Barrett, DO [address] [place] [address] Porfirio Wilkinson MD [address] [place] [phone] Status Reason Specialty Diagnoses / Procedures Referred By Contact Referred To Contact Closed Magnetic Resonan ce Imaging Diagnoses Myelopathy Procedures MRI SPINE CERVICAL WITHOUT CONTRAST VA MRI, CERV SPINE Porfirio Wilkinson MD [address] [place] [address] [facility] [address] [place] [phone] Reason Comments Back Pain Status Reason Specialty Diagnoses / Procedures Referred By Contact Referred To Contact Closed Cardiovascular Medicine Diagnoses Dizziness and giddiness Benign hypertension Procedures ECHOCARDIOGRAM VA ECHO HEART XTHORACIC,COMPLETE W DOPPLER Isaiah Youssef MD [address] [place] [address] [facility] [address] [place] [phone] Status Reason Specialty Diagnoses / Procedures Referred By Contact Referred To Contact Closed Magnetic Resonan ce Imaging Diagnoses Lumbar radiculopathy Procedures MRI SPINE LUMBAR WITHOUT CONTRAST VA MRI, LUMBAR SPINE Roberto Macdonald MD [address] [place] [address] [facility] [address] [place] [phone] (unrecognized sect ion and content) No Status Records FoundNo Status Records FoundNo Status Records Found INFORMATION SOURCE (unrecogn ized section and content) DATE CREATED AUTHOR 04/02/2020 [facility] DATE CREATED AUTHOR AUTHOR'S ORGANIZ ATION 07/05/2020 [facility] DATE CREATED AUTHOR AUTHOR'S ORGANIZ ATION 01/12/2025 [facility] FOR RECORDS PERTAINING TO PATIENTS WHO ARE OR HAVE BEEN ENROLLED IN A CHEMICAL DEPENDENCY/SUBSTANCEABUSE PROGRAM, SOME INFORMATION MAY BE OMITTED. This clinical summary was aggregated from multiple sources. Caution should be exercised in using it in the provision of clinical care. This summary normalizes information from multiple sources, and as a consequence, information in this document may materially change the coding, format and clinical context of patient data. In addition, data may be omitted in some cases. CLINICAL DECISIONS SHOULD BE BASED ON THE PRIMARY CLINICAL RECORDS. [employer] provides no warranty or guarantee of the accuracy or completeness of information in this document.
[2025-01-14] MEDS: Lactated Ringers 1,000 ML 15 ML IV (06:41)
--- NOTE | 2025-01-14 07:26 | PRE.ANES_ITS ---
ASA Classification* ASA Classification ASA Classification: 2 Assessment & Plan Anesthesia* Anesthesia Assessment Anesthesia Assessment: Discussed sedation and/or anesthesia options, risks, benefits, and alternatives with patient/parents/legal guardian/POA. Questions invited. The patient/parents/legal guardian/POA seems to understand and agrees to proceed with anesthesia plan. Reviewed the physical assessment, medical history, allergy history and patient home medications list prior to surgery/procedure/anesthetic and documented any changes. Performed airway and anesthesia risk assessments. 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 When Was Last Pacemaker Check QUESTION #4 FULL TEXT: You/Your Family Experience fever (hyperthermia) with Anesthesia Last Oral Intake Last Oral intake: Last Oral Intake NPO since 04:30 01/14/25 06:29 Meds taken in AM with sips of water? Meds patient instructed to take am of surgery PONV PONV - pellet post inspector: PONV - pellet post inspector Female No 01/10/25 08:48 HX of Motion Sickness No 01/10/25 08:48 HX of N/V After Surgery No 01/10/25 08:48 Non-Smoker Yes 01/10/25 08:48 Duration of Surgery greater No 01/10/25 08:48 than 60 minutes Number of Risk Factors 1 01/10/25 08:48 PONV Score Low Risk 01/10/25 08:48 Height & Weight Height & Weight: Anesthesia: Height & Weight Height 5 ft 11 in 01/14/25 06:29 Weight: 123.377 kg 01/14/25 06:29 Body Mass Index (BMI) 37.9 01/14/25 06:29 Respiratory Assessment Respiratory Assessment - pellet post inspector: Respiratory Tract Infection Hx - pellet post inspector Hx Respiratory Tract Infection No 01/10/25 08:48 STOP Sleep Apnea STOP Sleep Apnea - pellet post inspector: STOP Sleep Apnea - pellet post inspector Hx Hypertension No 01/10/25 08:48 Hx Sleep Apnea Yes: non compliant -weight 01/10/25 08:48 loss CPAP No 01/10/25 08:48 BIPAP No 01/10/25 08:48 Do you snore loudly (louder than talking or can be heard Do you often feel tired/ fatigued/ sleepy during daytime? Has anyone observed you stop breathing during sleep? STOP Results Positive 01/10/25 08:48 QUESTION #5 FULL TEXT : Do you snore loudly (louder than talking or can be heard through closed doors)? 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 Specify any problems Hx of Preganancy in last 3 N/A 01/10/25 08:48 Months Nurse Filling Out Transfusion JZOLLINGE 01/10/25 08:48 & Questions: Date: 01/10/25 01/10/25 08:48 Time: 08:50 01/10/25 08:48 Patient unable to answer at this time (ie. confused, unrespo /Reproduction History /Reproductive History - pellet post inspector: /Reproductive Hx- pellet post inspector Hx Now No 01/10/25 08:48 Gestational Age (in weeks): EDC: Hx Hx Para Hx Section SAB No 01/10/25 08:48 Active Medications Active Medications: Current Medications Generic Name Dose Route Start Last Admin Trade Name Freq PRN Reason Stop Dose Admin Lactated Ringer's 1,000 mls @ 15 mls/hr 01/14/25 06:30 01/14/25 06:41 IV 15 mls/hr .Q48H SIMRAN Administration PFSH Medical History (Updated 01/10/25 @ 08:57 by Navya Kelley) Hx of cardiomegaly Wears glasses Hx of peripheral neuropathy Anxiety Marijuana use Arthritis Back pain Loss of consciousness Heartburn Sleep apnea Former smoker Asthma Home Medications ?Medication ?Instructions ?Recorded ?Last Taken ?Type lisinopril 40 mg tablet 40 mg PO DAILY 01/10/2510/04 History venlafaxine 75 mg capsule,extended 75 mg PO DAILY 07/0601/13/25 History release 24 hr Allergy/AdvReac Type Severity Reaction Status Date / Time gabapentin AdvReac Intermediate agitated Verified 01/14/25 06:27 latex AdvReac Mild Rash Verified 01/14/25 06:27 Surgical History (Updated 01/10/25 @ 08:57 by Nvaya Kelley) Hx of vasectomy History of cardiac catheterization Social History Smoking Status: Former smoker Review of Systems (Anesthesia) ROS Narrative System reviewed and no additional complaints, except as documented.
--- NOTE | 2025-01-14 07:29 | PCM.HP.STD ---
HPI - General General Date of Admission: 01/14/25 Date of Service: 01/14/25 Chief Complaint: Screening colonoscopy HPI Narrative FANTA WHITLEY, is a 54 M who presents for screening colonoscopy. He has never had a colonoscopy previously. He denies any GI symptoms or problems other than some issues with hemorrhoids. His grandmother apparently of colon cancer. [facility] Medical History (Updated 01/14/25 @ 07:[address] Porfirio Perez MD) Screening for colon cancer Hx of cardiomegaly Wears glasses Hx of peripheral neuropathy Anxiety Marijuana use Arthritis Back pain Loss of consciousness Heartburn Sleep apnea Former smoker Asthma Home Medications ?Medication ?Instructions ?Recorded ?Last Taken ?Type lisinopril 40 mg tablet 40 mg PO DAILY 01/10/25 01/13/25 History venlafaxine 75 mg capsule,extended 75 mg PO DAILY 01/10/25 01/13/25 History release 24 hr Allergy/AdvReac Type Severity Reaction Status Date / Time gabapentin AdvReac Intermediate agitated Verified 01/14/25 06:27 latex AdvReac Mild Rash Verified 01/14/25 06:27 Surgical History (Updated 01/10/25 @ 08:57 by Navya Kelley) Hx of vasectomy History of cardiac catheterization Social History Smoking Status: Former smoker Vital Signs Vital Signs Vital Signs: 01/14/25 06:29 01/14/25 06:29 01/14/25 07:28 Temperature 98 F 98 F Temperature Source Temporal Pulse Rate 70 70 Respiratory Rate 16 16 Respiratory Pattern Normal Blood Pressure 137/95 H 137/95 H Blood Pressure Mean 109 Blood Pressure Source Monitor Blood Pressure Position Sitting Blood Pressure Location Right Arm Pulse Ox 97 97 Oxygen Delivery Method Room Air Room Air Weight Weight: 272 lb Body Mass Index (BMI) 37.9 Physical Exam Const alert, oriented x3 and no apparent distress Assessment & Plan Assessment/Plan (1) Screening for colon cancer: PLAN: Plan The patient is a 54-year-old male in need of a screening colonoscopy. He has no previous colonoscopy. He denies any symptoms. He does have a family history of colon cancer in his maternal grandmother. We discussed the details of the procedure including risk benefits and alternatives and he wishes to proceed. This will begin momentarily Charges/Coding Visit Charges Inpatient E&M: 21095 Init Hosp L2
--- NOTE | 2025-01-14 07:30 | COLBX_PTH ---
PATIENT: FANTA WHITLEY LOC: EN U#:[id number] AGE/SX: 54/M ROOM: RE01/14/[address]: Dr. Porfirio Perez MD : 1970 BED: DIS: 01/14/2025 SPEC #: [id number] RECD: 01/14/25 10:21 STATUS: LEON NGA #: [id number] JUAN JOSE: 01/14/25 07:[address]: Porfirio Perez DEPT: SURGICAL PATHOLOGY RECD BY: Tito Yoder ENTERED: 01/14/25 13:33 SP TYPE: COLON BX OTHR DR: Herrera Enrique PA-C Tissues: A - Sigmoid colon biopsy Procedures: Surgery Specimen Level IV HEADER OPERATION: Colonoscopy, polypectomy PRE-OP DIAGNOSIS: Screening for colon cancer TISSUE SUBMITTED: A- Sigmoid polyp MICROSCOPIC DIAGNOSIS A. Sigmoid colon, polyp, biopsy: - Hyperplastic polyp. MICROSCOPIC DESCRIPTION Slides are reviewed. GROSS DESCRIPTION A. Received in fixative is one container labeled with the patient's name and designated Sigmoid polyp. The specimen consists of one irregular fragment of light abbott soft tissue that measures 0.5 cm. The specimen is totally submitted in one cassette. ND 01/14/2025 CPT:45534
--- NOTE | 2025-01-14 08:39 | PCM.POST.ANE ---
Anesthesia: Postop Eval I Current Vital Signs Temperature: 97.8 F Pulse Rate: 77 Blood Pressure: 93/57 Respiratory Rate: 16 Pulse Ox: 96 Assessment Airway patent: Yes Spontaneous unlabored respirations: Yes nausea: No Vomiting: No Anesthesia Complication: No Fluid Hydration Crystalloid volume administer (ml): 400 Total IV fluid infused: 400 Progress Note Anesthesia document: Postop Eval 1 completed: No
--- NOTE | 2025-01-14 08:46 | OP.COLON_ITS ---
Patient Name: Cb Begum Procedure Date: 01/14/2025 7:55 AM Date of : 1970 Age: 54 Procedure: Colonoscopy Indications: Screening for colon cancer: Family history of colorectal cancer in distant relative(s) 60 or older Providers: Porfirio Perez MD Referring MD: Herrera Enrique Do Medicines: Monitored Anesthesia Care Patient Profile: Refer to note in patient chart for documentation of history and physical. Last Colonoscopy: none. The patient's first colonoscopy is today. Complications: No immediate complications. Estimated blood loss: Minimal. Procedure: Pre-Anesthesia Assessment: - Prior to the procedure, a History and Physical was performed, and patient medications and allergies were reviewed. The patient's tolerance of previous anesthesia was also reviewed. The risks and benefits of the procedure and the sedation options and risks were discussed with the patient. All questions were answered, and informed consent was obtained. Prior Anticoagulants: The patient has taken no anticoagulant or antiplatelet agents. ASA Grade Assessment: II - A patient with mild systemic disease. After reviewing the risks and benefits, the patient was deemed in satisfactory condition to undergo the procedure. After I obtained informed consent, the scope was passed under direct vision. Throughout the procedure, the patient's blood pressure, pulse, and oxygen saturations were monitored continuously. The adult colonoscope was introduced through the anus and advanced to the cecum, identified by appendiceal orifice and ileocecal valve. The ileocecal valve, appendiceal orifice, and rectum were photographed. The entire colon was well visualized. The colonoscopy was performed without difficulty. The patient tolerated the procedure well. The quality of the bowel preparation was adequate. Scope In: 8:04:56 AM Scope Withdrawal Time 0 hours 17 minutes 49 seconds Scope Out: 8:31:05 AM Total Procedure Duration Time 0 hours 26 minutes 9 seconds Findings: The perianal and digital rectal examinations were normal. Multiple small-mouthed diverticula were found in the sigmoid colon. Hemorrhoids were found during retroflexion. The hemorrhoids were moderate. A 5 mm polyp was found in the sigmoid colon. The polyp was semi-sessile. The polyp was removed with a cold biopsy forceps. Resection and retrieval were complete. Verification of patient identification for the specimen was done by the nurse using the patient's name, date and medical record number. Estimated blood loss was minimal. The exam was otherwise without abnormality on direct and retroflexion views. Impression: - Diverticulosis in the sigmoid colon. - Hemorrhoids. - One 5 mm polyp in the sigmoid colon, removed with a cold biopsy forceps. Resected and retrieved. - The examination was otherwise normal on direct and retroflexion views. Recommendation: - Discharge patient to home (ambulatory). - High fiber diet. - Await pathology results. - Repeat colonoscopy in 5 years for surveillance. - Return to my office PRN. - Continue present medications. Procedure Code(s): --- Professional --- 42964, Colonoscopy, flexible; with biopsy, single or multiple Diagnosis Code(s): --- Professional --- Z12.11, Encounter for screening for malignant neoplasm of colon Z80.0, Family history of malignant neoplasm of digestive organs K64.9, Unspecified hemorrhoids K57.30, Diverticulosis of large intestine without perforation or abscess without bleeding D12.5, Benign neoplasm of sigmoid colon CPT copyright 2021 [employer]. All rights reserved. The codes documented in this report are preliminary and upon orthopedic specialist review may be revised to meet current compliance requirements. Porfirio Perez MD 01/14/2025 8:45:28 AM This report has been signed electronically. Number of Addenda: 0 Note Initiated On: 01/14/2025 7:55 AM
--- NOTE | 2025-01-14 08:46 | OP.PROVAT_ITS ---
01/14/2025 Herrera Enrique Do Re : Colonoscopy procedure for Cb Begum Dear Klaus This procedure was performed on Tuesday, January 14, 2025. My impressions and recommendations are as follows: Impressions : - Diverticulosis in the sigmoid colon. - Hemorrhoids. - One 5 mm polyp in the sigmoid colon, removed with a cold biopsy forceps. Resected and retrieved. - The examination was otherwise normal on direct and retroflexion views. Recommendations : - Discharge patient to home (ambulatory). - High fiber diet. - Await pathology results. - Repeat colonoscopy in 5 years for surveillance. - Return to my office PRN. - Continue present medications. My findings are described in the full procedure note, which is enclosed. If I can be of further assistance, please feel free to contact me at . Sincerely, Porfirio Perez MD 01/14/2025 8:45:28 AM This report has been signed electronically.
--- NOTE | 2025-01-14 17:06 | POSTOPAN2_ITS ---
Anesthesia Postop Eval I Sum Postop Eval Completion status Anesthesia document: Postop Eval 1 completed: No Anesthesia Postop Eval I Summary Anesthesia Postop Eval I Summary: Anesthesia Postop Eval I: Assessment Summary Airway patent Yes 01/14/25 08:39 [email or web address] Spontaneous unlabored Yes 01/14/25 08:39 [email or web address] respirations Mental status nausea No 01/14/25 08:39 [email or web address] Vomiting No 01/14/25 08:39 [email or web address] Anesthesia Postop Eval I: Fluid Summary Crystalloid volume administer 400 01/14/25 08:39 [email or web address] (ml) Colloids volume administered ( ml) Blood Product volume administered (ml) Total IV fluid infused 400 01/14/25 08:39 [email or web address] Anesthesia Postop Eval I: Summary Notes Anesthesia Complication No 01/14/25 08:39 [email or web address] Anesthesia Complication Comment: Post-operative progress note Anesthesia: Postop Eval II Evaluation Mental status: Awake and Calm Pain Level: 1 nausea: No Vomiting: No Complications Anesthesia Complication: No
--- NOTE | 2025-01-14 17:06 | PCM.POSTANE2 ---
Anesthesia Postop Eval I Sum Postop Eval Completion status Anesthesia document: Postop Eval 1 completed: No Anesthesia Postop Eval I Summary Anesthesia Postop Eval I Summary: Anesthesia Postop Eval I: Assessment Summary Airway patent Yes 01/14/25 08:39 [email or web address] Spontaneous unlabored Yes 01/14/25 08:39 [email or web address] respirations Mental status nausea No 01/14/25 08:39 [email or web address] Vomiting No 01/14/25 08:39 [email or web address] Anesthesia Postop Eval I: Fluid Summary Crystalloid volume administer 400 01/14/25 08:39 [email or web address] (ml) Colloids volume administered ( ml) Blood Product volume administered (ml) Total IV fluid infused 400 01/14/25 08:39 [email or web address] Anesthesia Postop Eval I: Summary Notes Anesthesia Complication No 01/14/25 08:39 [email or web address] Anesthesia Complication Comment: Post-operative progress note Anesthesia: Postop Eval II Evaluation Mental status: Awake and Calm Pain Level: 1 nausea: No Vomiting: No Complications Anesthesia Complication: No
== END 2025-01-14 09:22 | disposition home or self-care (01) ==
LOC: EN 06:10 → AC 06:12
PROVIDERS: PCP Physician Assistant; Referring Provider Physician Assistant; Visit Provider Surgery
PROC: 0DJD8ZZ Inspection of Lower Intestinal Tract, Via Natural or Artificial Opening Endoscopic (ICD-10-PCS; CPT 45378; principal; 2025-01-14 07:25)
DX: Z12.11 Encounter for screening for malignant neoplasm of colon (principal); K63.5 Polyp of colon; K64.9 Unspecified hemorrhoids; D12.5 Benign neoplasm of sigmoid colon; K57.30 Diverticulosis of large intestine without perforation or abscess without bleeding; Z79.899 Other long term (current) drug therapy; Z87.891 Personal history of nicotine dependence; Z80.0 Family history of malignant neoplasm of digestive organs
CPT/HCPCS: 45380; 88305